=== PATIENT | female | born 1950 ===

== ENCOUNTER 2023-03-21 15:59 | Inpatient (IN) | payer MEDICARE ==
[~2023-03-21] VITALS: Ht 147.3 cm; Wt 106.0 kg
[2023-03-21 17:52] VITALS: BP 123/98
[2023-03-21 18:28] LABS: PCO2 Arterial 23.1 mmHg (35-45); pH Blood Arterial 7.43 (7.35-7.45)
[2023-03-21 18:57] LABS: Hematocrit 38.2 % (33.0-51.0); Hemoglobin 13.6 g/dL (11.5-16.0); Mean Corpuscular HGB 30.6 pg (26.0-34.0); Mean Corpuscular HGB Conc 35.6 g/dL (31.5-36.5); Mean Corpuscular Volume 86 fL (80-100); Mean Platelet Volume 12.5 fL (9.1-12.4); Platelet Count 201 K/mm3 (150-400); RDW Coefficient Variation 14.2 % (11.7-14.2); Red Blood Cell Count 4.45 M/mm3 (3.80-5.20); White Blood Cell Count 30.61 K/mm3 (4.00-11.30)
[2023-03-21 19:19] LABS: Albumin, Blood 2.2 g/dL (3.4-5.0); Albumin/Globulin Ratio 0.4 (0.8-1.8); Bilirubin, Total 0.7 mg/dL (0.1-1.0); Bun/Creatinine Ratio 43.8 (12.0-20.0); Calcium, Blood 8.8 mg/dL (8.5-10.1); Creatinine, Blood 0.62 mg/dL (0.40-1.00); Globulin, Blood 4.9 g/dL (2.2-4.0); Total Protein, Blood 7.1 g/dL (6.4-8.2)
--- NOTE | 2023-03-21 19:37 | NUR ---
ADMIT NOTE PT ARRIVED TO UNIT AT APPROX 1740 VIA EMS, DIRECT ADMIT FROM [facility]. PT CONFUSED, ALERT TO SELF ONLY, DOES NOT FOLLOW MOST COMMANDS. SATS >90% ON ROOM AIR. PT NOTABLE TACHYPENIC, SHALLOW RESPIRATIONS. TELEMETRY SHOW PACED, HR 120'S, TOUCHING 140'S OCCASSIONALLY. CAP REFILL DELAYED, SKIN MOTTLED ON ALL EXTREMITIES. ZALDIVAR CATHER IN PLACE AT ARRIVAL, PLACED IN [facility]. DRAINING CLEAR YELLOW URINE. NO BM. LOCALIZES PAIN ON RLQ UPON PALPATION. MULTIPLE SKIN RASHES AND SCABS, SEE PICTURES IN CHART. MD NAIR IN ROOM TO ASSESS PT. MD NAIR W/ ORDERS FOR STAT ECHO AND CARDIOLOGY CONSULT. ECHO CURRENTLY IN RM. BED ALARM ON. CALL LIGHT IN REACH.
[2023-03-21 20:55] LABS: Base Excess Venous -7.7 mmol/L; Bicarbonate Venous 19.1 mmol/L (24.0-30.0); PCO2 Venous 27.5 mmHg (38-42)
[2023-03-21 20:59] VITALS: BP 167/122
[2023-03-21 21:23] LABS: Bun/Creatinine Ratio 40.1 (12.0-20.0); Calcium, Blood 8.8 mg/dL (8.5-10.1); Creatinine, Blood 0.65 mg/dL (0.40-1.00); Potassium, Blood 2.8 mmol/L (3.5-5.5)
[2023-03-21] MEDS ORDERED: ROSUVASTATIN CA20 MG PO (21:26)
[2023-03-21] MEDS ORDERED: IRBESARTAN300 M3 PO (21:26)
[2023-03-21 21:34] VITALS: BP 159/85
[2023-03-21 22:04] LABS: Source, Urine Clean Catch
[2023-03-21 22:41] LABS: Appearance, Urine Clear (Clear); Bilirubin, Urine Neg (Neg); Blood, Urine 4+ (Neg); Color, Urine Yellow (P-Yellow); Glucose Qualitative, Urine 4+ (Neg); Ketones, Urine 4+ (Neg); Leukocyte Esterase, Urine Neg (Neg); Nitrite, Urine Neg (Neg); Protein, Urine 3+ (Neg); Urobilinogen, Urine NORM (Normal)
[2023-03-21 23:01] VITALS: BP 162/86
[2023-03-21 23:09] LABS: U Amphetamine Screen Not Detected; U Barbituate Screen Not Detected; U Benzodiazapine Screen Not Detected; U Buprenorphine Screen Not Detected; U Cannabinoids Screen DETECTED; U Cocaine Screen Not Detected; U Methadone Screen Not Detected; U Methamphetamine Screen Not Detected; U Opiates Screen Not Detected; U Oxycodone Screen Not Detected; U Phencyclidine Screen Not Detected; U Propoxyphene Screen Not Detected
[2023-03-21 23:22] LABS: Bacteria Few /hpf; Granular Casts 0-2 /lpf (0); Squamous Epithelial Cells Few /hpf (Few); White Blood Cells, Urine 0-2 /hpf (0-5)
[2023-03-22] VITALS (64 sets, daily range): BP systolic 94–178; BP diastolic 60–92
[2023-03-22 01:18] LABS: Bun/Creatinine Ratio 38.8 (12.0-20.0); Calcium, Blood 8.5 mg/dL (8.5-10.1); Creatinine, Blood 0.64 mg/dL (0.40-1.00); Potassium, Blood 2.8 mmol/L (3.5-5.5)
[2023-03-22 02:34] LABS: Magnesium, Blood 2.2 mg/dL (1.6-2.4)
[2023-03-22 04:14] LABS: Hematocrit 35.1 % (33.0-51.0); Hemoglobin 12.4 g/dL (11.5-16.0); Mean Corpuscular HGB 30.3 pg (26.0-34.0); Mean Corpuscular HGB Conc 35.3 g/dL (31.5-36.5); Mean Corpuscular Volume 86 fL (80-100); Mean Platelet Volume 12.3 fL (9.1-12.4); Platelet Count 191 K/mm3 (150-400); RDW Coefficient Variation 14.1 % (11.7-14.2); RDW Standard Deviation 44.2 fL (35.1-46.3); Red Blood Cell Count 4.09 M/mm3 (3.80-5.20)
[2023-03-22 04:26] LABS: Albumin, Blood 1.9 g/dL (3.4-5.0); Albumin/Globulin Ratio 0.4 (0.8-1.8); Bilirubin, Total 0.8 mg/dL (0.1-1.0); Bun/Creatinine Ratio 39.5 (12.0-20.0); Calcium, Blood 8.5 mg/dL (8.5-10.1); Creatinine, Blood 0.63 mg/dL (0.40-1.00); Globulin, Blood 4.4 g/dL (2.2-4.0); Magnesium, Blood 2.3 mg/dL (1.6-2.4); Potassium, Blood 2.9 mmol/L (3.5-5.5); Total Protein, Blood 6.3 g/dL (6.4-8.2)
[2023-03-22 04:50] LABS: PCO2 Arterial 26.2 mmHg (35-45); PO2 Arterial 60.6 mmHg (80-100); pH Blood Arterial 7.46 (7.35-7.45)
--- NOTE | 2023-03-22 06:52 | NUR ---
SHIFT SUMMARY PT A&O TO SELF, DOES NOT CALL AND DOES NOT COMMUNICATES NEEDS. PT STATES THAT SHE IS STILL AT THE [facility] PT NOT ABLE TO FOLLOW COMMANDS, CONSTANTLY PULLING AT LINES AND TUBES REQUIRING HER TO BE IN BILAT SOFT WRIST RESTRAINTS. BP ELEVATED, MANAGED PER EMAR. PACED 120's, DENIES CP/PRESSURE. SpO2> 92% RA. RR 40-60's AND INCREASED WORK OF BREATHING, PT REPORTS THAT SHE FEELS TIRED. NOTIFED PHYSICIAN OF RR AND WORK OF BREATHING, HR, AND BP; PHYSICIAN TO BEDSIDE, ORDERS PLACED. PT's RR AND WORK OF BREATHING REMAIN VERY ELEVATED AND ABG IS SLIGHTLY WORSE, DISCUSSED CONCERN WITH RT. PHYSICIAN NOTIFIED AND THIS RN EXPRESSED CONCERN OF PT's RR AND WORK OF BREATHING, ORDERS PLACED FOR PT TO BE PLACED ON CPAP, RESTRAINTS REMOVED, AND AN ADDITIONAL DOSE OF PAIN MEDICATION RATHER THAN ATIVAN TO HELP WOTH CPAP COMPLIANCE. PT's RR REMAINS 50's EVEN ON CPAP AND PT IS PULLING ON LINES, TUBING, AND MASK. ZALDIVAR CATH IN PLACE, PATENT, DRAINING TO GRAVITY. PT REMAINED BEDREST AND NPO. GRANDSON AT BEDSIDE. NO OTHER EVENTS, WILL REPORT TO ONCOMING RN.
[2023-03-22 08:12] LABS: Adenovirus Not Detected (NOT DETECT); Bordetella pertussis Not Detected (NOT DETECT); Chlamydophila pneumoniae Not Detected (NOT DETECT); Coronavirus 229E Not Detected (NOT DETECT); Coronavirus HKU1 Not Detected (NOT DETECT); Coronavirus NL63 Not Detected (NOT DETECT); Coronavirus OC43 Not Detected (NOT DETECT); Human Metapneumovirus Not Detected (NOT DETECT); Human Rhinovirus/Enterovirus Not Detected (NOT DETECT); Influenza A/2009-H1 Not Detected (NOT DETECT); Influenza A/H1 Not Detected (NOT DETECT); Influenza A/H3 Not Detected (NOT DETECT); Influenza B Not Detected (NOT DETECT); Mycoplasma pneumoniae Not Detected (NOT DETECT); Parainfluenza Virus 1 Not Detected (NOT DETECT); Parainfluenza Virus 2 Not Detected (NOT DETECT); Parainfluenza Virus 3 Not Detected (NOT DETECT); Parainfluenza Virus 4 Not Detected (NOT DETECT); Respiratory Syncytial Virus Not Detected (NOT DETECT); SARS-Cov-2 (COVID-19), BioFire Not Detected (NOT DETECT)
--- NOTE | 2023-03-22 08:58 | NUR ---
TRANSFER ICU PT OPENS EYES TO VERBAL STIMULATION. PT SPEAKS, BUT DIFFICULT TO UNDERSTAND W/ CPAP ON. MONITOR SHOWING PACED RHYTHM, HR 110s-120s. BP ELEVATED. RR 40s-60s. SPO2 > 92% ON CPAP: 10, FIO2 30% W/ PT CONTINUOUSLY TRYING TO REMOVE MASK. CALL TO MD NAIR W/ ORDERS TO TAKE PT TO CT & TRANSFER TO ICU. PT GRANDSON AT BEDSIDE UPDATED. REPORT GIVEN TO ACCEPTING MANAGED CARE NURSE. PT TAKEN TO IMAGING BY BED, THEN TRANSFERRED TO ICU-12.
--- NOTE | 2023-03-22 09:00 | NUR ---
INITIAL ASSESSMENT PATIENT RESPONDS TO VERBAL STIMULI. PATIENT CONFUSED. PATIENT ORIENTED TO SELF ONLY. PATIENT ABLE TO FOLLOW SOME SIMPLE COMMANDS. PATIENT WEAK BUT ABLE TO MOVE ALL EXTREMITIES. PATIENT YOCHA DEHE. SPEECH MUMBLED. NO SIGNS OF PAIN NOTED. PATIENT AFEBRILE. PATIENT ON CPAP OF 10 AND 30% FIO2. LUNGS CLEAR IN RUL AND HAS EXPIRATORY COARSENESS TO ALL OTHER LOBES. PATIENT RR 40S TO 60S. PATIENT 100% V.PACED. HR IN THE 1-TEENS. SBP IN THE 160S. EDEMA NOTED TO EXTREMITIES. ABD MODERATELY DISTENDED, HYPOACTIVE BOWEL SOUNDS NOTED. DATE OF LAST BM UNKNOWN. PATIENT NPO. ZALDIVAR DRAINING YELLOW COLORED URINE. MOTTLED AREA TO BACK; FAMILY STATES PATIENT HAS BURN FROM USING HEATING PAD AT HOME. LEGS MOTTLED. SCATTERED SCABS NOTED T/O. PANNUS, GROIN FOLDS, UNDERNEATH BREASTS, AXILLI, INTERGLUTEAL CLEFT REDDENED WITH RASH. BED LOW, CALL LIGHT AT BEDSIDE. FAMILY AT BEDSIDE.
[2023-03-22 11:04] LABS: BAND PERCENT MAN 7 % (0-8); BASOPHILS PERCENT MAN 0 % (0-2); EOSINOPHILS PERCENT MAN 0 % (0-6); LYMPHOCYTES ABSOLUTE MAN 1.08 K/mm3 (0.84-5.20); LYMPHOCYTES PERCENT MAN 4 % (21-46); MONOCYTES ABSOLUTE MAN 1.89 K/mm3 (0.16-1.47); MONOCYTES PERCENT MAN 7 % (4-13); NEUTROPHILS ABSOLUTE MAN 24.03 K/mm3 (1.96-9.15); SEG NEUTROPHILS PERCENT MAN 82 % (41-73); TOTAL CELLS COUNTED 100
--- NOTE | 2023-03-22 12:30 | NUR ---
PATIENT AFEBRILE. HR IN THE 1-TEENS. SBP IN THE 140S. GRANDSON AT BEDSIDE.
[2023-03-22 13:41] LABS: PCO2 Arterial 31.9 mmHg (35-45); PO2 Arterial 93.6 mmHg (80-100); pH Blood Arterial 7.48 (7.35-7.45)
[2023-03-22 15:54] LABS: BASOPHILS ABSOLUTE AUTO 0.07 K/mm3 (0.00-0.23); BASOPHILS PERCENT AUTO 0 % (0-2); EOSINOPHILS ABSOLUTE AUTO 0.03 K/mm3 (0.00-0.68); EOSINOPHILS PERCENT AUTO 0 % (0-6); Hematocrit 35.7 % (33.0-51.0); Hemoglobin 12.8 g/dL (11.5-16.0); IMMATURE GRAN ABSOLUTE AUTO 0.33 K/mm3 (0.00-0.10); IMMATURE GRAN PERCENT AUTO 1 % (0-1); LYMPHOCYTES ABSOLUTE AUTO 0.79 K/mm3 (0.84-5.20); LYMPHOCYTES PERCENT AUTO 3 % (21-46); MONOCYTES ABSOLUTE AUTO 1.78 K/mm3 (0.16-1.47); MONOCYTES PERCENT AUTO 6 % (4-13); Mean Corpuscular HGB 30.5 pg (26.0-34.0); Mean Corpuscular HGB Conc 35.9 g/dL (31.5-36.5); Mean Corpuscular Volume 85 fL (80-100); Mean Platelet Volume 12.4 fL (9.1-12.4); NEUTROPHILS PERCENT AUTO 90 % (41-73); Platelet Count 210 K/mm3 (150-400); RDW Coefficient Variation 13.9 % (11.7-14.2); RDW Standard Deviation 43.5 fL (35.1-46.3); Red Blood Cell Count 4.19 M/mm3 (3.80-5.20)
[2023-03-22 16:11] LABS: Bun/Creatinine Ratio 31.5 (12.0-20.0); Calcium, Blood 8.8 mg/dL (8.5-10.1); Creatinine, Blood 0.83 mg/dL (0.40-1.00); Potassium, Blood 2.7 mmol/L (3.5-5.5)
--- NOTE | 2023-03-22 19:20 | NUR ---
SHIFT SUMMARY PATIENT REMAINED CONFUSED AND ON CPAP THIS SHIFT. PATIENT ONLY ORIENTED TO SELF AND SOMETIMES FOLLOWED SIMPLE COMMANDS. PATIENT WEAK BUT REMAINED ABLE TO MOVE ALL EXTREMITIES. PATIENT REMAINED AFEBRILE. PATIENT GIVEN PRN FENTANYL FOR HIGH RR AND HIGH HR, WELL PATIENT BEING RESTLESS IN BED. CPAP REMAINED AT 10 AND 30% FIO2. RR 30S TO 60S. PATIENT REMAINED V.PACED WITH HR 1-TEENS TO 120S. SBP 90S TO 160S. PRN IV METOPROLOL AND HYDRALAZINE AVAILABLE FOR HIGH HR OR BP. NO BM THIS SHIFT. SUPPOSITORY GIVEN THIS SHIFT. PATIENT REMAINED NPO. ZALDIVAR DRAINED 1975 MLS OF DARK YELLOW COLORED URINE. PICS OF WOUNDS/ SKIN PLACED IN CHART. NYSTATIN CREAM APPLIED FOR RASHES IN SKIN FOLDS. SODIIUM BICARB IN D5 INFUSING AT 50 MLS/ HOUR. PATIENT RECEIVED 80 MEQ KCL THIS SHIFT FOR LOW POTASSIUM LEVELS. PATIENT HAD CTA OF CHEST AND LUMBAR/ THORACIC AREAS THIS SHIFT. BLOOD SUGARS REMAINED IN 270S; COVERAGE ADMINISTERED AT EACH CHECK. BED LOW, CALL LIGHT IN REACH. GRANDSON REMAINS IN ROOM. REPORT GIVEN TO COPY CHIEF ASSUMING NURSE.
[2023-03-22 23:20] LABS: Source, Urine Foley catheter
[2023-03-22 23:30] LABS: Appearance, Urine Hazy (Clear); Bilirubin, Urine Neg (Neg); Blood, Urine 4+ (Neg); Color, Urine Yellow (P-Yellow); Glucose Qualitative, Urine 4+ (Neg); Ketones, Urine 4+ (Neg); Leukocyte Esterase, Urine 1+ (Neg); Nitrite, Urine Neg (Neg); Protein, Urine 3+ (Neg); Specific Gravity, Urine 1.015 (1.003-1.022); Urobilinogen, Urine 1+ (Normal)
[2023-03-23] VITALS (86 sets, daily range): BP systolic 101–183; BP diastolic 62–162
[2023-03-23 00:02] LABS: Bacteria Mod /hpf; Granular Casts 0-2 /lpf (0); Squamous Epithelial Cells Few /hpf (Few)
[2023-03-23 03:48] LABS: BASOPHILS ABSOLUTE AUTO 0.06 K/mm3 (0.00-0.23); BASOPHILS PERCENT AUTO 0 % (0-2); EOSINOPHILS PERCENT AUTO 0 % (0-6); Hematocrit 34.3 % (33.0-51.0); Hemoglobin 11.9 g/dL (11.5-16.0); IMMATURE GRAN ABSOLUTE AUTO 0.31 K/mm3 (0.00-0.10); IMMATURE GRAN PERCENT AUTO 1 % (0-1); LYMPHOCYTES ABSOLUTE AUTO 0.83 K/mm3 (0.84-5.20); LYMPHOCYTES PERCENT AUTO 4 % (21-46); MONOCYTES ABSOLUTE AUTO 1.73 K/mm3 (0.16-1.47); MONOCYTES PERCENT AUTO 8 % (4-13); Mean Corpuscular HGB 29.9 pg (26.0-34.0); Mean Corpuscular HGB Conc 34.7 g/dL (31.5-36.5); Mean Corpuscular Volume 86 fL (80-100); Mean Platelet Volume 12.3 fL (9.1-12.4); NEUTROPHILS ABSOLUTE AUTO 20.06 K/mm3 (1.96-9.15); NEUTROPHILS PERCENT AUTO 87 % (41-73); Platelet Count 217 K/mm3 (150-400); RDW Coefficient Variation 13.9 % (11.7-14.2); RDW Standard Deviation 43.7 fL (35.1-46.3); Red Blood Cell Count 3.98 M/mm3 (3.80-5.20); White Blood Cell Count 22.99 K/mm3 (4.00-11.30)
[2023-03-23 04:22] LABS: Alanine Aminotransfer (ALT/SGP 27 U/L (12-78); Albumin, Blood 1.7 g/dL (3.4-5.0); Albumin/Globulin Ratio 0.4 (0.8-1.8); Alk Phos 174 U/L (50-136); Anion Gap 8 mmol/L (6-16); Aspartate Aminotrans (AST/SGOT 36 U/L (12-37); Bilirubin, Total 0.8 mg/dL (0.1-1.0); Blood Urea Nitrogen 29 mg/dL (8-24); CHOL/HDL RATIO 6.8; CO2, Blood 28 mmol/L (21-32); Calcium, Blood 8.5 mg/dL (8.5-10.1); Chloride, Blood 113 mmol/L (98-108); Cholesterol 61 mg/dL (50-200); Creatinine, Blood 0.81 mg/dL (0.40-1.00); Globulin, Blood 4.5 g/dL (2.2-4.0); Glomerular Filtration Rate 78 (60-); Glucose, Blood 292 mg/dL (70-99); HDL Cholesterol 9 mg/dL (>39); LDL/HDL RATIO 1.6; Low Density Lipoprotein Chol 15 mg/dL (0-110); Magnesium, Blood 2.7 mg/dL (1.6-2.4); Phosphorus, Blood 1.3 mg/dL (2.5-4.9); Potassium, Blood 2.9 mmol/L (3.5-5.5); Sodium, Blood 149 mmol/L (136-145); Total Protein, Blood 6.2 g/dL (6.4-8.2); Triglycerides 187 mg/dL (30-160); Very Low Density Lipoprot Chol 37 mg/dL (6-32)
--- NOTE | 2023-03-23 06:28 | NUR ---
SHIFT SUMMARY: NO ACUTE CHANGES OVERNIGHT. PT REMAINS AMS, AT TIMES WILL RESPOND TO NAME BEING CALLED BY OPENNING EYES AND IS RESPONSIVE TO PAIN STIMULI AT THIS TIME. PT ON CPAP WITH SETTINGS AT 10, FIO2 40%; FIO2 TITRATED UP THIS SHIFT DUE TO PT SPO2 DROPPING DOWN TO 88 AND SUSTAINING. PT LUNG SOUNDS ARE COARSE THROUGHOUT AND DRY, NON-PRODUCTIVE COUGHT NOTED THIS MORNING. ORAL CARE COMPLETE BUT PT VERY RELUCTANT TO COOPERATE; PT CONTINUOUSLY SHAKING HEAD AND PULLING AT THIS RN'S HANDS WHEN ATTEMPTING ORAL CARE, THE GRANDSON AT BEDSIDE HELPED HOLD PT'S HANDS A FEW TIMES. PT REMAINS PACED ON MONITOR WITH HR 110'S AND SBP 150-160'S; PT RECIEVED ONE DOSE OF HYDRALIZINE PER EMAR. PT REMAINS NPO FOR ASPIRATION RISK; ABD ROUND AND TENDER IN R QUADRANTS, NO BOWEL MOVEMENT THIS SHIFT. ZALDIVAR REPLACED THIS SHIFT PER PROTOCOL AND NEW UA SENT TO LAB; URINE YELLOW, SLIGHTLY CLOUDY. SKIN REMAINS UNCHANGED; VARIOUS BRUISES, EXCORIATION/FUNGAL INFECTION IN ABD FOLDS AND RASH/BURN ON BACK. PT WAS VERY RESTLESS THROUGHOUT THE NIGHT AND AGGITATED WITH ANY KIND OF PT CARE; PT RECIEVED ATIVAN AND FENTANYL WHICH SEEMED TO HELP WITH RESTLESSNESS. BED LOWERED, CALL LIGHT IN REACH, WILL REPORT TO ONCOMING RN.
--- NOTE | 2023-03-23 08:00 | NUR ---
INITIAL ASSESSMENT PATIENT RESLTESS AND FIDGETY. PATIENT IS NOT REPONSIVE TO VERBAL STIMULI AND DOES NOT FOLLOW COMMANDS. PATIENT PULLS AWAY FROM NOXIOUS STIMULI AND ANY TYPE OF NURSING CARE. PATIENT [place] PER GRANDSON. PATIENT HAD COMPLAINTS OF BACK PAIN BEFORE BEING ADMITTED. PATIENT HAS TEMP OF 99.4 DEGREES FAHRENHEIT THIS AM. PATIENT ON CPAP OF 10 AND 40% FIO2. RHONCHI NOTED T/O LUNG LOBES. PATIENT HAS OCCASIONAL DRY COUGH. PATIENT V.PACED. HR IN THE 1-TEENS. SBP IN THE 160S. EDEMA NOTED TO EXTREMITIES. ABD MODERATELY DISTENDED, SOFT, APPEARS TENDER TO PALPATION, HYPOACTIVE BOWEL SOUNDS NOTED. SUPPOSITORY GIVEN DRAmerica WOULD LIKE GIVEN UNTIL PATIENT HAS BOWEL MOVEMENT. ZALDIVAR DRAINING DARK YELLOW COLORED URINE. SCATTERED BRUISES AND SCABS NOTED. OPENED BLISTERS NOTED TO R UPPER BUTTOCKS. SKIN FOLDS REMAIN WITH RASHES. NYSTATIN CREAM BEING APPLIED ORDERED. PATIENT ON IV DIFLUCAN. PATIENT ALSO ON ZOSYN AND VANCO. SODIUM BICARB IN D5 INFUSING AT 50 MLS/ HOUR. PATIENT RECEIVING PHOS AND POTASSIUM REPLACEMENTS THIS AM. BED LOW, CALL LIGHT IN REACH. GRANDSON AT BEDSIDE.
[2023-03-23 08:25] LABS: Vancomycin, Trough 17.9 ug/mL (5.0-10.0)
[2023-03-23 11:01] LABS: Base Excess Venous 9.4 mmol/L; Bicarbonate Venous 32.2 mmol/L (24.0-30.0); PCO2 Venous 42.2 mmHg (38-42)
--- NOTE | 2023-03-23 13:00 | NUR ---
PATIENT AFEBRILE. HR IN THE LOW 100S. SBP 140S TO 150S. BLOOD SUGAR 323; COVERAGE GIVEN. PATIENT ON BIPAP 21/02, RATE OF 14, 40% FIO2. NO OTHER ACUTE CHANGES TO NOTE ON AT THIS TIME. GRANDSON AT BEDSIDE.
[2023-03-23 13:58] LABS: BASOPHILS ABSOLUTE AUTO 0.05 K/mm3 (0.00-0.23); BASOPHILS PERCENT AUTO 0 % (0-2); EOSINOPHILS ABSOLUTE AUTO 0.01 K/mm3 (0.00-0.68); EOSINOPHILS PERCENT AUTO 0 % (0-6); Hematocrit 32.4 % (33.0-51.0); Hemoglobin 11.5 g/dL (11.5-16.0); IMMATURE GRAN ABSOLUTE AUTO 0.29 K/mm3 (0.00-0.10); IMMATURE GRAN PERCENT AUTO 1 % (0-1); LYMPHOCYTES ABSOLUTE AUTO 1.14 K/mm3 (0.84-5.20); LYMPHOCYTES PERCENT AUTO 6 % (21-46); MONOCYTES ABSOLUTE AUTO 1.25 K/mm3 (0.16-1.47); MONOCYTES PERCENT AUTO 6 % (4-13); Mean Corpuscular HGB 30.5 pg (26.0-34.0); Mean Corpuscular HGB Conc 35.5 g/dL (31.5-36.5); Mean Corpuscular Volume 86 fL (80-100); Mean Platelet Volume 12.4 fL (9.1-12.4); NEUTROPHILS ABSOLUTE AUTO 17.69 K/mm3 (1.96-9.15); NEUTROPHILS PERCENT AUTO 87 % (41-73); Platelet Count 218 K/mm3 (150-400); RDW Coefficient Variation 14.3 % (11.7-14.2); RDW Standard Deviation 45.1 fL (35.1-46.3); Red Blood Cell Count 3.77 M/mm3 (3.80-5.20); White Blood Cell Count 20.43 K/mm3 (4.00-11.30)
[2023-03-23 14:26] LABS: Albumin, Blood 1.8 g/dL (3.4-5.0); Albumin/Globulin Ratio 0.4 (0.8-1.8); Bilirubin, Total 0.9 mg/dL (0.1-1.0); Calcium, Blood 8.6 mg/dL (8.5-10.1); Creatinine, Blood 0.8 mg/dL (0.40-1.00); Globulin, Blood 4.4 g/dL (2.2-4.0); Magnesium, Blood 2.8 mg/dL (1.6-2.4); Potassium, Blood 3.2 mmol/L (3.5-5.5); Total Protein, Blood 6.2 g/dL (6.4-8.2)
[2023-03-23 15:01] LABS: Phosphorus, Blood 2.2 mg/dL (2.5-4.9); Potassium, Blood 3.2 mmol/L (3.5-5.5)
--- NOTE | 2023-03-23 16:05 | NUR ---
PATIENT AFEBRILE. HR IN THE 1-TEENS. SBP 140S TO 160S. RR IN THE 40S. PATIENT REMAINS ON SAME CPAP SETTINGS. BED LOW, CALL LIGHT IN REACH. GRANDSON AT BEDSIDE.
--- NOTE | 2023-03-23 19:03 | NUR ---
SHIFT SUMMARY PATIENT REMAINS RESPONDING TO NURSING CARE WITH SWATTING AT NURSES AND GRIMACING. PATIENT NOT FOLLOWING ANY COMMANDS AT THIS TIME. PATIENT NOT OPENING EYES. PATIENT NOT ANSWERING ANY QUESTIONS AND ONLY MAKING SMALL SOUNDS AT TIMES. PATIENT HAS REMAINED FIDGETY AND RESTLESS. PATIENT BEING GIVEN PRN FENTANYL AND TYLENOL FOR SIGNS OF DISCOMFORT. PATIENT GIVEN PRN ATIVAN OT AT END OF SHIFT PATIENT CONTINUES TO TRY AND PULL MONITORING EQUIPMENT, IVS AND BIPAP OFF EVEN WITH GRANDSON TRYING TO REDIRECT AT BEDSIDE. PATIENT HAD SLIGHT TEMP OF 99.4 DEGREES FAHRENHEIT THIS AM BUT HAS BEEN AFEBRILE SINCE. PATIENT CHANGED FROM CPAP TO BIPAP /, RATE OF 14 AND 40% FIO2 BECAUSE OF PATIENT'S PULLING LOW TVS AROUND 150S TO 250S. PATIENT REMAINED V.PACED, HR LOW 100S TO 130S. SBP LOW 100S TO 170S. NO BM THIS SHIFT. PATIENT GIVEN SUPPOSITORY THIS AM. PATIENT REMAINED NPO. ZALDIVAR DRAINED GOOD AMOUNT OF URINE THIS SHIFT. NO CHANGES TO SKIN NOTED. PATIENT TURNED Q2H AND RECEIVED BED BATH THIS SHIFT. FLUIDS CHANGED TO D5 1/2 NS AT 100 MLS/ HOUR. PATIENT HAD 20 MEQ OF KCL AND 60 MM KPHOS THIS SHIFT. NEW BLOOD CULTURES OBTAINED THIS SHIFT. BLOOD SUGARS IN MID 300S THIS SHIFT. PATIENT CHANGED TO REGULAR INSULIN- HSS AND NPH ADDED BID. PATIENT'S GRANDSON HAS REMAINED AT BEDSIDE ALL DAY EXCEPT FOR SMALL BREAKS. BED LOW, CALL LIGHT IN REACH. REPORT HAS BEEN GIVEN TO ASSUMING BLOOMING MILL SUPERVISOR NURSE.
[2023-03-23 22:48] LABS: Phosphorus, Blood 2.6 mg/dL (2.5-4.9); Potassium, Blood 3.3 mmol/L (3.5-5.5)
[2023-03-24] VITALS (60 sets, daily range): BP systolic 85–154; BP diastolic 54–114
[2023-03-24 04:32] LABS: BASOPHILS ABSOLUTE AUTO 0.02 K/mm3 (0.00-0.23); BASOPHILS PERCENT AUTO 0 % (0-2); EOSINOPHILS ABSOLUTE AUTO 0.01 K/mm3 (0.00-0.68); EOSINOPHILS PERCENT AUTO 0 % (0-6); Hematocrit 29.4 % (33.0-51.0); Hemoglobin 10.3 g/dL (11.5-16.0); IMMATURE GRAN ABSOLUTE AUTO 0.15 K/mm3 (0.00-0.10); IMMATURE GRAN PERCENT AUTO 1 % (0-1); LYMPHOCYTES ABSOLUTE AUTO 0.97 K/mm3 (0.84-5.20); LYMPHOCYTES PERCENT AUTO 6 % (21-46); MONOCYTES ABSOLUTE AUTO 0.93 K/mm3 (0.16-1.47); MONOCYTES PERCENT AUTO 6 % (4-13); Mean Corpuscular HGB 30.3 pg (26.0-34.0); Mean Corpuscular Volume 87 fL (80-100); Mean Platelet Volume 12.3 fL (9.1-12.4); NEUTROPHILS ABSOLUTE AUTO 13.81 K/mm3 (1.96-9.15); NEUTROPHILS PERCENT AUTO 87 % (41-73); Platelet Count 182 K/mm3 (150-400); RDW Coefficient Variation 14.6 % (11.7-14.2); RDW Standard Deviation 46.1 fL (35.1-46.3); White Blood Cell Count 15.89 K/mm3 (4.00-11.30)
[2023-03-24 04:53] LABS: Albumin, Blood 1.5 g/dL (3.4-5.0); Albumin/Globulin Ratio 0.4 (0.8-1.8); Bilirubin, Total 0.7 mg/dL (0.1-1.0); Bun/Creatinine Ratio 32.8 (12.0-20.0); Calcium, Blood 7.8 mg/dL (8.5-10.1); Creatinine, Blood 0.79 mg/dL (0.40-1.00); Globulin, Blood 4.1 g/dL (2.2-4.0); Magnesium, Blood 2.5 mg/dL (1.6-2.4); Phosphorus, Blood 1.6 mg/dL (2.5-4.9); Potassium, Blood 3.7 mmol/L (3.5-5.5); Total Protein, Blood 5.6 g/dL (6.4-8.2)
--- NOTE | 2023-03-24 07:16 | NUR ---
SHIFT SUMMARY: NO ACUTE CHANGES OVERNIGHT; VSS THROUGHOUT THE SHIFT. PT REMAINS AMS, NOT RESPONDING TO VERBAL STIMULI BUT BECOMES VERY AGGITATED/RESTLESS WITH NOXIOUS STIMULI. PT REMAINS ON BIPAP WITH SETTINGS 14/8, RATE-14, AND FIO2 40%; LUNG SOUNDS ARE COARSE THROUGHOUT WITH THE LEFT SIDE MORE DIMINISHED COMPARED TO THE RIGHT SIDE. PT PACED ON MONITOR WITH HR 80-110'S, SBP 120-140'S; PT CURRENTLY ON PRECEDEX GTT @ 0.2 MCG/KG/HR. ABD OBESE, ROUND AND TENDER IN THE RIGTH QUADRANTS; PT DID NOT HAVE A BOWEL MOVEMENT THIS SHIFT. PT HAS ZALDIVAR IN PLACE THAT IS DRAINING TO GRAVITY; URINE DARK YELLOW/BERE, URINE OUTPUT 650. PT HAS SCATTERED BRUISING, EXCORIATION/FUNGAL INFECTION IN FOLDS AND TEAR/BURN ON BACKSIDE; WOUND CARE PER ORDERS. PT TOLERATED ORAL CARE THIS SHIFT AND Q2HR REPOSITIONING WITH LIFT. PT'S GRANDSON AT BEDSIDE THROUGHOUT THE NIGHT HELPING THIS RN WITH PT CARE. D5 1/2 NS @ 100 MLS/HR. WILL REPORT TO ONCOMING RN.
--- NOTE | 2023-03-24 09:42 | NUR ---
Intubation: Dr. Venegas and 2 RTs at bedside prepping for intubation. 0945: 50 mg propofol IV push, pt being ventilated with BiPAP. 0946: 8.0 ET tube placed by Dr. Venegas, EtCO2 positive, bilateral breath sounds, 23 cm at teeth ET depth. 0947: 50 mg propofol IV push due to pt biting on ET tube. 0949: OG tube placed.
[2023-03-24 10:45] LABS: PCO2 Arterial 38.5 mmHg (35-45); pH Blood Arterial 7.51 (7.35-7.45)
[2023-03-24 13:44] LABS: BASOPHILS ABSOLUTE AUTO 0.01 K/mm3 (0.00-0.23); BASOPHILS PERCENT AUTO 0 % (0-2); EOSINOPHILS ABSOLUTE AUTO 0.02 K/mm3 (0.00-0.68); EOSINOPHILS PERCENT AUTO 0 % (0-6); Hematocrit 28.7 % (33.0-51.0); Hemoglobin 9.8 g/dL (11.5-16.0); IMMATURE GRAN ABSOLUTE AUTO 0.16 K/mm3 (0.00-0.10); IMMATURE GRAN PERCENT AUTO 1 % (0-1); LYMPHOCYTES ABSOLUTE AUTO 1.01 K/mm3 (0.84-5.20); LYMPHOCYTES PERCENT AUTO 8 % (21-46); MONOCYTES ABSOLUTE AUTO 0.63 K/mm3 (0.16-1.47); MONOCYTES PERCENT AUTO 5 % (4-13); Mean Corpuscular HGB 30.2 pg (26.0-34.0); Mean Corpuscular HGB Conc 34.1 g/dL (31.5-36.5); Mean Corpuscular Volume 88 fL (80-100); Mean Platelet Volume 12.7 fL (9.1-12.4); NEUTROPHILS PERCENT AUTO 86 % (41-73); NRBC ABSOLUTE 0.02 K/mm3 (0.00-0.02); NRBC Auto 0.2 /100 WBC (0.0-0.2); Platelet Count 164 K/mm3 (150-400); RDW Coefficient Variation 14.9 % (11.7-14.2); RDW Standard Deviation 48.5 fL (35.1-46.3); Red Blood Cell Count 3.25 M/mm3 (3.80-5.20); White Blood Cell Count 13.33 K/mm3 (4.00-11.30)
[2023-03-24 13:58] LABS: Bun/Creatinine Ratio 33.7 (12.0-20.0); Calcium, Blood 7.9 mg/dL (8.5-10.1); Creatinine, Blood 0.89 mg/dL (0.40-1.00); Phosphorus, Blood 3.5 mg/dL (2.5-4.9)
--- NOTE | 2023-03-24 18:10 | NUR ---
SUMMARY PT INTBUATED AND SEDATED WITH PROPOFOL AND PRECEDEX. PT WAS INTUBATED THIS AM FOR [place]. HER WOB AND RESP RATE WERE INCREASED WELL. PT GRIMACES TO PAIN. OG PLACED. TUBE FEEDING STARTED AND PT TOLERATING WELL. 200ML H20 FLUSHES DUE TO INCREASED SODIUM LEVEL. GRANDSON REMAINS AT BEDSIDE AND UPDATED THROUGHOUT THE DAY. NO SIGN OF DISTRESS.
--- NOTE | 2023-03-24 19:00 | NUR ---
ASSUMED CARE OF PT AT 1900 PT IS SEDATED AND INTUBATED AT THIS TIME. GRANDSON AT BEDSIDE DURING BEDSIDE REPORT. VITALS WNL ( SEE VITALS DOCUMENTATION). PROP @ 25 MCG PRECEDEX @ 0.2 MCG ZALDIVAR CATH DRAINING DARK YELLOW URINE. VENT SETTINGS 18/400/5/40% SEE FULL ASSESSMENT FOR FURTHER INFORMATION.
--- NOTE | 2023-03-24 19:38 | NUR ---
RT IN ROOM AT THIS TIME.
[2023-03-24 20:36] LABS: BASOPHILS ABSOLUTE AUTO 0.02 K/mm3 (0.00-0.23); BASOPHILS PERCENT AUTO 0 % (0-2); EOSINOPHILS ABSOLUTE AUTO 0.06 K/mm3 (0.00-0.68); EOSINOPHILS PERCENT AUTO 0 % (0-6); Hemoglobin 10.2 g/dL (11.5-16.0); IMMATURE GRAN ABSOLUTE AUTO 0.17 K/mm3 (0.00-0.10); IMMATURE GRAN PERCENT AUTO 1 % (0-1); LYMPHOCYTES ABSOLUTE AUTO 1.23 K/mm3 (0.84-5.20); LYMPHOCYTES PERCENT AUTO 8 % (21-46); MONOCYTES ABSOLUTE AUTO 0.66 K/mm3 (0.16-1.47); MONOCYTES PERCENT AUTO 4 % (4-13); Mean Corpuscular HGB 30.2 pg (26.0-34.0); Mean Corpuscular Volume 89 fL (80-100); Mean Platelet Volume 12.6 fL (9.1-12.4); NEUTROPHILS ABSOLUTE AUTO 12.77 K/mm3 (1.96-9.15); NEUTROPHILS PERCENT AUTO 86 % (41-73); Platelet Count 175 K/mm3 (150-400); RDW Standard Deviation 49.1 fL (35.1-46.3); Red Blood Cell Count 3.38 M/mm3 (3.80-5.20); White Blood Cell Count 14.91 K/mm3 (4.00-11.30)
[2023-03-24 20:52] LABS: Bun/Creatinine Ratio 38.6 (12.0-20.0); Calcium, Blood 8.1 mg/dL (8.5-10.1); Creatinine, Blood 0.88 mg/dL (0.40-1.00)
[2023-03-25] VITALS (46 sets, daily range): BP systolic 125–184; BP diastolic 66–94
[2023-03-25 04:46] LABS: BASOPHILS ABSOLUTE AUTO 0.02 K/mm3 (0.00-0.23); BASOPHILS PERCENT AUTO 0 % (0-2); EOSINOPHILS ABSOLUTE AUTO 0.04 K/mm3 (0.00-0.68); EOSINOPHILS PERCENT AUTO 0 % (0-6); Hematocrit 31.5 % (33.0-51.0); Hemoglobin 10.7 g/dL (11.5-16.0); IMMATURE GRAN ABSOLUTE AUTO 0.27 K/mm3 (0.00-0.10); IMMATURE GRAN PERCENT AUTO 2 % (0-1); LYMPHOCYTES ABSOLUTE AUTO 1.37 K/mm3 (0.84-5.20); LYMPHOCYTES PERCENT AUTO 8 % (21-46); MONOCYTES ABSOLUTE AUTO 0.67 K/mm3 (0.16-1.47); MONOCYTES PERCENT AUTO 4 % (4-13); Mean Corpuscular HGB 30.1 pg (26.0-34.0); Mean Corpuscular Volume 89 fL (80-100); NEUTROPHILS PERCENT AUTO 86 % (41-73); Platelet Count 202 K/mm3 (150-400); RDW Coefficient Variation 14.8 % (11.7-14.2); Red Blood Cell Count 3.56 M/mm3 (3.80-5.20); White Blood Cell Count 16.67 K/mm3 (4.00-11.30)
[2023-03-25 05:12] LABS: Albumin, Blood 1.6 g/dL (3.4-5.0); Albumin/Globulin Ratio 0.3 (0.8-1.8); Bilirubin, Total 0.7 mg/dL (0.1-1.0); Bun/Creatinine Ratio 43.2 (12.0-20.0); Calcium, Blood 8.1 mg/dL (8.5-10.1); Creatinine, Blood 0.86 mg/dL (0.40-1.00); Globulin, Blood 4.6 g/dL (2.2-4.0); Magnesium, Blood 2.4 mg/dL (1.6-2.4); Phosphorus, Blood 2.5 mg/dL (2.5-4.9); Potassium, Blood 3.7 mmol/L (3.5-5.5); Total Protein, Blood 6.2 g/dL (6.4-8.2)
--- NOTE | 2023-03-25 06:22 | NUR ---
END OF SHIFT SUMMARY PT SEDATED AND INTUBATED. PROP AT 25 MCG, PRECEDEX ON SB. TF @ 10 MLS/HR WITH 200 Q4 FLUSHES. NO ACUTE CHANGES THIS SHIFT. PLEASE SEE ASSESSMENTS AND NOTES FOR MORE INFORMATION. WILL CONTINUE TO MONITOR UNTIL REPORT IS GIVEN.
--- NOTE | 2023-03-25 06:26 | NUR ---
UNABLE TO ESTABLISH ACTUAL WEIGHT D/T BED BEING BROKEN.
--- NOTE | 2023-03-25 07:00 | NUR ---
ASSUMPTION OF CARE PT RECEIVING PROPOFOL 25MCG/KG/MIN. SHE REMAINS INTUBATED WITH VENT SETTINGS AC/VC 18/400/5/40%. SHE MOVES HEAD AND WITHDRAWS FROM NOXIOUS STIMULI. COUGH/GAG INTACT. TUBE FEEDING INFUSING VIA OGT. ZALDIVAR PATENT AND DRAINING BERE URINE TO GRAVITY. MEGAN GOLDEN AT BEDSIDE. SEE SHIFT ASSESSMENT.
[2023-03-25 09:02] LABS: Vancomycin, Trough 23.1 ug/mL (5.0-10.0)
[2023-03-25 14:32] LABS: BASOPHILS ABSOLUTE AUTO 0.02 K/mm3 (0.00-0.23); BASOPHILS PERCENT AUTO 0 % (0-2); EOSINOPHILS ABSOLUTE AUTO 0.02 K/mm3 (0.00-0.68); EOSINOPHILS PERCENT AUTO 0 % (0-6); Hematocrit 30.1 % (33.0-51.0); Hemoglobin 10.2 g/dL (11.5-16.0); IMMATURE GRAN ABSOLUTE AUTO 0.33 K/mm3 (0.00-0.10); IMMATURE GRAN PERCENT AUTO 2 % (0-1); LYMPHOCYTES ABSOLUTE AUTO 1.04 K/mm3 (0.84-5.20); LYMPHOCYTES PERCENT AUTO 6 % (21-46); MONOCYTES ABSOLUTE AUTO 0.66 K/mm3 (0.16-1.47); MONOCYTES PERCENT AUTO 4 % (4-13); Mean Corpuscular HGB 30.1 pg (26.0-34.0); Mean Corpuscular HGB Conc 33.9 g/dL (31.5-36.5); Mean Corpuscular Volume 89 fL (80-100); Mean Platelet Volume 12.8 fL (9.1-12.4); NEUTROPHILS PERCENT AUTO 88 % (41-73); Platelet Count 183 K/mm3 (150-400); RDW Coefficient Variation 14.9 % (11.7-14.2); RDW Standard Deviation 48.1 fL (35.1-46.3); Red Blood Cell Count 3.39 M/mm3 (3.80-5.20); White Blood Cell Count 17.17 K/mm3 (4.00-11.30)
[2023-03-25 14:43] LABS: Albumin, Blood 1.5 g/dL (3.4-5.0); Albumin/Globulin Ratio 0.3 (0.8-1.8); Bilirubin, Total 0.8 mg/dL (0.1-1.0); Bun/Creatinine Ratio 44.2 (12.0-20.0); Calcium, Blood 8.1 mg/dL (8.5-10.1); Creatinine, Blood 0.77 mg/dL (0.40-1.00); Globulin, Blood 4.3 g/dL (2.2-4.0); Potassium, Blood 3.2 mmol/L (3.5-5.5); Total Protein, Blood 5.8 g/dL (6.4-8.2); Vancomycin, Random 17.1 ug/mL
--- NOTE | 2023-03-25 18:02 | NUR ---
SHIFT SUMMARY PT RECEIVING PROPOFOL 35MCG/KG/MIN. SHE REMAINS INTUBATED WITH VENT SETTINGS AC/VC 18/400/5/40%. PT WITHDRAWS FROM NOXIOUS STIMULI. TUBE FEEDING INFUSING VIA OGT AT 20ML/HR WITH GOAL RATE OF 30ML/HR. ZALDIVAR PATENT AND DRAINING TO GRAVITY. URINE IS CLOUDY YELLOW IN COLOR. GRANDSON HAS REMAINED AT BEDSIDE THROUGHOUT THE SHIFT AND UPDATED ON PT'S CONDITION. CALL LIGHT WITHIN REACH.
--- NOTE | 2023-03-25 19:09 | NUR ---
ASSUMED CARE OF PT AT 1900 BP 166/79 AT THIS TIME. PREV SHIFT GAVE FENT 15 MIN PRIOR TO BEDSIDE SHIFT REPORT. GRANDSON AT BEDSIDE. SEE FULL ASSESSMENT FOR FURTHER INFORMATION.
[2023-03-26] VITALS (56 sets, daily range): BP systolic 113–194; BP diastolic 54–91
[2023-03-26 03:34] LABS: BASOPHILS ABSOLUTE AUTO 0.02 K/mm3 (0.00-0.23); BASOPHILS PERCENT AUTO 0 % (0-2); EOSINOPHILS ABSOLUTE AUTO 0.04 K/mm3 (0.00-0.68); EOSINOPHILS PERCENT AUTO 0 % (0-6); Hematocrit 28.6 % (33.0-51.0); Hemoglobin 9.5 g/dL (11.5-16.0); IMMATURE GRAN ABSOLUTE AUTO 0.25 K/mm3 (0.00-0.10); IMMATURE GRAN PERCENT AUTO 2 % (0-1); LYMPHOCYTES ABSOLUTE AUTO 0.89 K/mm3 (0.84-5.20); LYMPHOCYTES PERCENT AUTO 7 % (21-46); MONOCYTES ABSOLUTE AUTO 0.54 K/mm3 (0.16-1.47); MONOCYTES PERCENT AUTO 4 % (4-13); Mean Corpuscular HGB 30.1 pg (26.0-34.0); Mean Corpuscular HGB Conc 33.2 g/dL (31.5-36.5); Mean Corpuscular Volume 91 fL (80-100); Mean Platelet Volume 12.4 fL (9.1-12.4); NEUTROPHILS ABSOLUTE AUTO 12.05 K/mm3 (1.96-9.15); NEUTROPHILS PERCENT AUTO 87 % (41-73); Platelet Count 165 K/mm3 (150-400); RDW Coefficient Variation 14.9 % (11.7-14.2); RDW Standard Deviation 49.1 fL (35.1-46.3); Red Blood Cell Count 3.16 M/mm3 (3.80-5.20); White Blood Cell Count 13.79 K/mm3 (4.00-11.30)
[2023-03-26 04:01] LABS: Albumin, Blood 1.3 g/dL (3.4-5.0); Albumin/Globulin Ratio 0.3 (0.8-1.8); Bilirubin, Total 0.7 mg/dL (0.1-1.0); Bun/Creatinine Ratio 37.6 (12.0-20.0); Calcium, Blood 7.6 mg/dL (8.5-10.1); Creatinine, Blood 0.77 mg/dL (0.40-1.00); Globulin, Blood 4.1 g/dL (2.2-4.0); Potassium, Blood 3.4 mmol/L (3.5-5.5); Total Protein, Blood 5.4 g/dL (6.4-8.2)
--- NOTE | 2023-03-26 05:28 | NUR ---
END OF SHIFT SUMMARY SEDATED AND INTUBATED. GRANDSON AT BEDSIDE. NO NEW CONCERNS AT THIS TIME. WILL CONTINUE TO MONITOR UNTIL REPORT GIVEN TO AM RN.
--- NOTE | 2023-03-26 07:00 | NUR ---
ASSUMPTION OF CARE PT RECEIVING PROPOFOL 25MCG/KG/MIN. SHE REMAINS INTUBATED WITH VENT SETTINGS AC/VC 18/400/5/30%. TUBE FEEDING INFUSING AT GOAL RATE. ZALDIVAR PATENT AN DDRAINING TO GRAVITY. GRANDSON AT BEDSIDE. SEE SHIFT ASSESSMENT.
[2023-03-26 13:05] LABS: BASOPHILS ABSOLUTE AUTO 0.03 K/mm3 (0.00-0.23); BASOPHILS PERCENT AUTO 0 % (0-2); EOSINOPHILS ABSOLUTE AUTO 0.03 K/mm3 (0.00-0.68); EOSINOPHILS PERCENT AUTO 0 % (0-6); Hematocrit 33.2 % (33.0-51.0); Hemoglobin 11.1 g/dL (11.5-16.0); IMMATURE GRAN ABSOLUTE AUTO 0.28 K/mm3 (0.00-0.10); IMMATURE GRAN PERCENT AUTO 2 % (0-1); LYMPHOCYTES ABSOLUTE AUTO 1.21 K/mm3 (0.84-5.20); LYMPHOCYTES PERCENT AUTO 7 % (21-46); MONOCYTES ABSOLUTE AUTO 0.66 K/mm3 (0.16-1.47); MONOCYTES PERCENT AUTO 4 % (4-13); Mean Corpuscular HGB 30.2 pg (26.0-34.0); Mean Corpuscular HGB Conc 33.4 g/dL (31.5-36.5); Mean Corpuscular Volume 90 fL (80-100); Mean Platelet Volume 12.7 fL (9.1-12.4); NEUTROPHILS ABSOLUTE AUTO 15.38 K/mm3 (1.96-9.15); NEUTROPHILS PERCENT AUTO 87 % (41-73); Platelet Count 190 K/mm3 (150-400); RDW Coefficient Variation 14.9 % (11.7-14.2); Red Blood Cell Count 3.68 M/mm3 (3.80-5.20); White Blood Cell Count 17.59 K/mm3 (4.00-11.30)
[2023-03-26 13:32] LABS: Albumin, Blood 1.6 g/dL (3.4-5.0); Albumin/Globulin Ratio 0.3 (0.8-1.8); Bilirubin, Total 0.8 mg/dL (0.1-1.0); Bun/Creatinine Ratio 38.7 (12.0-20.0); Calcium, Blood 7.9 mg/dL (8.5-10.1); Creatinine, Blood 0.7 mg/dL (0.40-1.00); Globulin, Blood 4.9 g/dL (2.2-4.0); Magnesium, Blood 2.2 mg/dL (1.6-2.4); Phosphorus, Blood 2.4 mg/dL (2.5-4.9); Potassium, Blood 3.3 mmol/L (3.5-5.5); Total Protein, Blood 6.5 g/dL (6.4-8.2)
--- NOTE | 2023-03-26 15:12 | NUR ---
SEDATION VACATION PROPOFOL OFF FOR APPROX 1.5HRS. PT OPENED EYES TO VERBAL STIMULI. PT GRIMACING. UNABLE TO FOLLOW COMMANDS INCLUDING SQUEEZING HANDS OR WIGGLING TOES. PT BECAME TACHYPNEIC WITH RATE IN 30S. HR TRENDING UP TO 90S-110S. HYPERTENSIVE WITH SBP 160-190. PROPOFOL RESTARTED AT 10MCG/KG/MIN.
--- NOTE | 2023-03-26 17:20 | NUR ---
SHIFT SUMMARY PT CONTINUES TO RECEIVE PROPOFOL 25MCG/KG/MIN. SHE REMAINS INTUBATED WITH VENT SETTINGS AC/VC 18/400/5/30%. DECREASED SECRETIONS TODAY. DURING SEDATION VACATION PT OPENED EYES TO VERBAL STIMULI BUT WAS UNABLE TO FOLLOW COMMANDS. TUBE FEEDING INFUSING AT GOAL RATE. ZALDIVAR PATENT AND DRAINING BERE COLORED URINE TO GRAVITY. GRANDSON REMAINS AT BEDSIDE AND UPDATED ON PT CONDITION.
--- NOTE | 2023-03-26 19:30 | NUR ---
ASSUMPTION OF CARE PT IS INTUBATED VIA ETT, INTACT AND PATENT TO THE VENT. BEDSIDE REPORT COMPLETED W/TALAT DOWNS. PT HAS BILATERAL BREATH SOUNDS, OXYGEN SAT 94% W/NO S/S OF RESP DISTRESS AT TIME OF ASSESSMENT. RAFA CHANTEL IS AT BEDSIDE. PT IS PACED W/RATE IN THE 90S ON THE BUSINESS RESILIENCY MANAGER. TF INFUSING AT GOAL. ZALDIVAR CATH IS INTACT PATENT AND DRAINING CLEAR YELLOW URINE.
[2023-03-27] VITALS (90 sets, daily range): BP systolic 103–180; BP diastolic 51–98
[2023-03-27 05:36] LABS: BASOPHILS ABSOLUTE AUTO 0.03 K/mm3 (0.00-0.23); BASOPHILS PERCENT AUTO 0 % (0-2); EOSINOPHILS ABSOLUTE AUTO 0.04 K/mm3 (0.00-0.68); EOSINOPHILS PERCENT AUTO 0 % (0-6); Hematocrit 29.3 % (33.0-51.0); Hemoglobin 9.7 g/dL (11.5-16.0); IMMATURE GRAN ABSOLUTE AUTO 0.14 K/mm3 (0.00-0.10); IMMATURE GRAN PERCENT AUTO 1 % (0-1); LYMPHOCYTES ABSOLUTE AUTO 0.78 K/mm3 (0.84-5.20); LYMPHOCYTES PERCENT AUTO 6 % (21-46); MONOCYTES ABSOLUTE AUTO 0.62 K/mm3 (0.16-1.47); MONOCYTES PERCENT AUTO 5 % (4-13); Mean Corpuscular HGB 30.2 pg (26.0-34.0); Mean Corpuscular HGB Conc 33.1 g/dL (31.5-36.5); Mean Corpuscular Volume 91 fL (80-100); Mean Platelet Volume 12.4 fL (9.1-12.4); NEUTROPHILS PERCENT AUTO 87 % (41-73); NRBC ABSOLUTE 0.03 K/mm3 (0.00-0.02); NRBC Auto 0.2 /100 WBC (0.0-0.2); Platelet Count 184 K/mm3 (150-400); RDW Coefficient Variation 15.1 % (11.7-14.2); RDW Standard Deviation 50.3 fL (35.1-46.3); Red Blood Cell Count 3.21 M/mm3 (3.80-5.20); White Blood Cell Count 12.51 K/mm3 (4.00-11.30)
[2023-03-27 05:48] LABS: Albumin, Blood 1.3 g/dL (3.4-5.0); Albumin/Globulin Ratio 0.3 (0.8-1.8); Bilirubin, Total 0.6 mg/dL (0.1-1.0); Bun/Creatinine Ratio 38.8 (12.0-20.0); Calcium, Blood 7.7 mg/dL (8.5-10.1); Creatinine, Blood 0.8 mg/dL (0.40-1.00); Globulin, Blood 4.5 g/dL (2.2-4.0); Phosphorus, Blood 2.7 mg/dL (2.5-4.9); Potassium, Blood 3.6 mmol/L (3.5-5.5); Total Protein, Blood 5.8 g/dL (6.4-8.2)
--- NOTE | 2023-03-27 06:04 | NUR ---
SHIFT SUMMERY PT REMAINS INTUBATED W/ETT INTACT AND PATENT TO THE VENT. OXYGEN SAT 95% W/NO S/S OF ACUTE RESP DISTRESS AT THIS TIME. PT HAS BEEN AFEBRILE OVERNIGHT. HR HAS BEEN IN THE 90S ON THE CLOTHING MANAGER, BP WNL. TF AT GOAL, PT TOLERATING WELL. PROPOFOL INFUSING FOR SEDATION. GRANDSON AT BEDSIDE. NO ACUTE CHANGES OVERNIGHT.
--- NOTE | 2023-03-27 08:46 | NUR ---
AM NOTE... ASSUMED CARE OF PT AT 0700, PT IS INTUBATED AND SEDATED, PROPOFOL IS RUNNING AT 40MCG, PT'S VENT SETTINGS ARE AC/VC: 18/400/5/30% WITH O2 SATS>95% L/S CLEAR T/O. SHE IS 100 PACED IN THE 80'S BP IS STABLE WITH MAPS>65. 2+ EDEMA IS NOTED TO HER BLE. OG TUBE IS RUNNING TUBE FEEDS PER ORDERS, BT PRESENT AND HYPOACTIVE ABD IS SOFT TO PALPATION. ZALDIVAR IS PATENT AND DRAINING TO GRAVITY. WILL CONTINUE TO MONITOR.
[2023-03-27 16:09] LABS: Vancomycin, Trough 9.2 ug/mL (5.0-10.0)
--- NOTE | 2023-03-27 18:22 | NUR ---
SHIFT SUMMARY... THE PT'S TMAX THIS SHIFT WAS 101.7 PER RECTAL TEMP, PT MEDICATED WITH TYLENOL PER ORDERS WITH MINIMAL RESULTS. PT'S SEDATION WAS STOPPED FOR APROX 3HRS SHE WAS ABLE TO OPEN HER EYES WHEN HER NAME WAS CALLED AND ATTEMPTED TO REACH FOR THE ET TUBE BUT WAS NOT ABLE TO FOLLOW COMMANDS. SHE BECAME VERY HYPERTENSIVE WITH SBPs IN THE 180'S WHILE NOT ON SEDATION. CPT WAS STARTED BY RT THIS SHIFT. TUBE FEEDS RUNNING PER ORDERS AT GOAL OF 40MLS/HR WITH 200MLS OF H2O FLUSHES. ZALDIVAR IS PATENT AND DRAINING TO GRAVITY. PT'S GRANDSON WAS AT THE BEDSIDE T/O THIS SHIFT. WILL CONTINUE TO [facility] UNTIL REPORT IS GIVEN TO ONCOMING RN.
[2023-03-28] VITALS (74 sets, daily range): BP systolic 122–194; BP diastolic 50–111
[2023-03-28 05:33] LABS: BASOPHILS ABSOLUTE AUTO 0.01 K/mm3 (0.00-0.23); BASOPHILS PERCENT AUTO 0 % (0-2); EOSINOPHILS ABSOLUTE AUTO 0.12 K/mm3 (0.00-0.68); EOSINOPHILS PERCENT AUTO 1 % (0-6); Hematocrit 26.5 % (33.0-51.0); Hemoglobin 8.8 g/dL (11.5-16.0); IMMATURE GRAN ABSOLUTE AUTO 0.13 K/mm3 (0.00-0.10); IMMATURE GRAN PERCENT AUTO 1 % (0-1); LYMPHOCYTES ABSOLUTE AUTO 0.84 K/mm3 (0.84-5.20); LYMPHOCYTES PERCENT AUTO 8 % (21-46); MONOCYTES ABSOLUTE AUTO 0.48 K/mm3 (0.16-1.47); MONOCYTES PERCENT AUTO 4 % (4-13); Mean Corpuscular HGB 30.7 pg (26.0-34.0); Mean Corpuscular HGB Conc 33.2 g/dL (31.5-36.5); Mean Corpuscular Volume 92 fL (80-100); Mean Platelet Volume 12.3 fL (9.1-12.4); NEUTROPHILS ABSOLUTE AUTO 9.58 K/mm3 (1.96-9.15); NEUTROPHILS PERCENT AUTO 86 % (41-73); Platelet Count 223 K/mm3 (150-400); RDW Coefficient Variation 14.7 % (11.7-14.2); RDW Standard Deviation 49.8 fL (35.1-46.3); Red Blood Cell Count 2.87 M/mm3 (3.80-5.20); White Blood Cell Count 11.16 K/mm3 (4.00-11.30)
--- NOTE | 2023-03-28 05:51 | NUR ---
SHIFT SUMMERY PT REMAINS INTUBATED AND SEDATED W/PROPOFOL. SHE HAS BEEN PACED ON THE SUCTION PLATE CARRIER CLEANER W/ BP WNL. ZALDIVAR CATH INTACT PATENT AND DRAINING TO GRAVITY. TF INFUSING AT GOAL AT THIS TIME. NO ACUTE CHANGES OVERNIGHT.
[2023-03-28 05:56] LABS: Albumin, Blood 1.3 g/dL (3.4-5.0); Albumin/Globulin Ratio 0.3 (0.8-1.8); Bilirubin, Total 0.5 mg/dL (0.1-1.0); Bun/Creatinine Ratio 44.1 (12.0-20.0); Calcium, Blood 7.9 mg/dL (8.5-10.1); Creatinine, Blood 0.75 mg/dL (0.40-1.00); Globulin, Blood 4.4 g/dL (2.2-4.0); Magnesium, Blood 2.2 mg/dL (1.6-2.4); Phosphorus, Blood 2.9 mg/dL (2.5-4.9); Potassium, Blood 3.5 mmol/L (3.5-5.5); Total Protein, Blood 5.7 g/dL (6.4-8.2)
--- NOTE | 2023-03-28 10:14 | NUR ---
ASSUMPTION OF CARE REPORT RECEIVED FROM ELSA RN. PT RESTING IN BED. INTUBATED AND SEDATED WITH PROPOFOL INFUSING AT 30 MCG/KG. PT WITHDRAWS EXTRMEITIES FROM NOXIOUS STIMULI. HR PACED, 60-70'S, MAP >65. VENTILATOR SETTINGS AC/VC 18/400/5/30%. POWERGLIDE TO ANDREW AND SUDHIR. LEFT ARM MORE EDEMATOUS THAN THE RIGHT. PATENCY OF PAWERGLIDE TO SUDHIR VERIFIED BY ULTRASOUND. TEMP ZALDIVAR PATENT DRAINING TO GRAVITY. PT HAS A FEVER OF 100.7. OG TUBE IN PLACE, TUBE FEEDS GOING AT 40MLS/HR. FAMILY AT BEDSIDE.
--- NOTE | 2023-03-28 18:16 | NUR ---
SHIFT SUMMARY PT RESTING IN BED. WITHDRAWLS EXTREMITIES FROM NOXIOUS STIMULI. HR PACED 60-70'S, MAP > 65. INTUBATED AND SEDATED, PROPOFOL INFUSING AT 30MCG/KG. VENTILATOR SETTINGS AC/VC 18/400/5/30%, OXYGEN SATURATION > 95%. POWERGLIDE TO SUDHIR AND ANDREW. NS INFUSING TKO. TEMP ZALDIVAR IN PLACE PATENT DRAINING YELLOW URINE TO GRAVITY. OG TUBE IN PLACE, TUBE FEED INFUSING AT GOAL RATE AT THIS TIME.
[2023-03-29] VITALS (21 sets, daily range): BP systolic 112–182; BP diastolic 58–83
[2023-03-29 03:38] LABS: BASOPHILS ABSOLUTE AUTO 0.02 K/mm3 (0.00-0.23); BASOPHILS PERCENT AUTO 0 % (0-2); EOSINOPHILS ABSOLUTE AUTO 0.14 K/mm3 (0.00-0.68); EOSINOPHILS PERCENT AUTO 1 % (0-6); Hematocrit 27.5 % (33.0-51.0); Hemoglobin 8.8 g/dL (11.5-16.0); IMMATURE GRAN ABSOLUTE AUTO 0.09 K/mm3 (0.00-0.10); IMMATURE GRAN PERCENT AUTO 1 % (0-1); LYMPHOCYTES ABSOLUTE AUTO 0.98 K/mm3 (0.84-5.20); LYMPHOCYTES PERCENT AUTO 8 % (21-46); MONOCYTES ABSOLUTE AUTO 0.42 K/mm3 (0.16-1.47); MONOCYTES PERCENT AUTO 3 % (4-13); Mean Corpuscular HGB 30.3 pg (26.0-34.0); Mean Corpuscular Volume 95 fL (80-100); Mean Platelet Volume 12.3 fL (9.1-12.4); NEUTROPHILS ABSOLUTE AUTO 11.04 K/mm3 (1.96-9.15); NEUTROPHILS PERCENT AUTO 87 % (41-73); Platelet Count 271 K/mm3 (150-400); RDW Standard Deviation 51.8 fL (35.1-46.3); White Blood Cell Count 12.69 K/mm3 (4.00-11.30)
[2023-03-29 04:24] LABS: Albumin, Blood 1.4 g/dL (3.4-5.0); Anion Gap 7 mmol/L (6-16); Blood Urea Nitrogen 33 mg/dL (8-24); Bun/Creatinine Ratio 56.9 (12.0-20.0); CO2, Blood 26 mmol/L (21-32); Calcium, Blood 7.9 mg/dL (8.5-10.1); Chloride, Blood 107 mmol/L (98-108); Creatinine, Blood 0.58 mg/dL (0.40-1.00); Glomerular Filtration Rate 97 (60-); Glucose, Blood 224 mg/dL (70-99); Potassium, Blood 3.3 mmol/L (3.5-5.5); Sodium, Blood 140 mmol/L (136-145)
--- NOTE | 2023-03-29 06:53 | NUR ---
SHIFT SUMMERY PT REMAINS INTUBATED VIA ETT TUBE. OXYGEN SAT 98%. SHE HAS BEEN FEBRILE, BLOOD CULTURES DRAWN THIS AM. SHE IS SEDATED ON PROPOFOL. SHE IS PACED ON THE DIRECTOR OF FLIGHT OPERATIONS W/RATE IN THE 70S. BP WNL. ZALDIVAR CATH INTACT AND DRAINING YELLOW URINE. GRANDSON AT BEDSIDE. SHE HAS HAD NO ACUTE CHANGES OR DISTRESS OVERNIGHT.
--- NOTE | 2023-03-29 09:17 | NUR ---
ASSUMPTION OF CARE REPORT RECEIVED FROM ELSA RN. PATIENT RESTING IN BED, FAMILY AT BEDSIDE. PT GRIMACES AND WITHDRAWLS EXTREMITIES FROM NOXIOUS STIMULI. HR PACED, 70-80'S, MAP > 65. PT INTUBATED AND SEDATED, PROPOFOL INFUSING AT 30MCG/KG. NS INFUSING TKO. VENTILATOR SETTINGS AC/VC 18/400/5/30%, OXYGEN SATURATION >95%. POWERGLIDE TO SUDHIR AND ANDREW. TUBE FEEDS INFUSING AT GOAL RATE OF 40MLS/HR. TEMP ZALDIVAR IN PLACE PATENT DRAINING TO GRAVITY, PT HAS A TEMPERATURE OF 99.9.
--- NOTE | 2023-03-29 18:18 | NUR ---
SHIFT SUMMARY PT RESTING IN BED. GRIMACES AND WITHDRAWLS ALL EXTREMITIES TO NOXIOUS STIMULI, OCCASIONALLY OPENS EYES. HR PACED 80-90'S MAP >65. INTUBATED AND SEDATED, PROPOFOL INFUSING AT 30MCG/KG. PT HAD SPONTANEOUS BREATHING TRIAL LASTING APPROXIMATELY 15 MINUTES DURING THIS SHIFT. VENTILATOR SETTINGS AC/VC 18/400/5/30% OXYGEN SATURATION >95%. PT HAD TMAX OF 104.0, MEDICATED WITH TYLENOL PER EMAR, FAN IN PLACE, AND COOL BED BATH GIVEN. PT TEMP NOW 101.6. TUBE FEEDS INFUSING AT GOAL RATE OF 40MLS/HR. POWERGLIDE IN PLACE TO RIGHT AND LEFT UPPER ARM. NS TKO INFUSING. ZALDIVAR PATENT DRAINING TO GRAVITY. CULTURE TAKEN FROM WOUND ON RIGHT FLANK. FAMILY AT THE BEDSIDE.
[2023-03-30] VITALS (25 sets, daily range): BP systolic 110–175; BP diastolic 53–82
[2023-03-30 05:56] LABS: BASOPHILS ABSOLUTE AUTO 0.03 K/mm3 (0.00-0.23); BASOPHILS PERCENT AUTO 0 % (0-2); EOSINOPHILS ABSOLUTE AUTO 0.16 K/mm3 (0.00-0.68); EOSINOPHILS PERCENT AUTO 1 % (0-6); Hematocrit 26.2 % (33.0-51.0); Hemoglobin 8.6 g/dL (11.5-16.0); IMMATURE GRAN ABSOLUTE AUTO 0.09 K/mm3 (0.00-0.10); IMMATURE GRAN PERCENT AUTO 1 % (0-1); LYMPHOCYTES ABSOLUTE AUTO 0.71 K/mm3 (0.84-5.20); LYMPHOCYTES PERCENT AUTO 6 % (21-46); MONOCYTES ABSOLUTE AUTO 0.33 K/mm3 (0.16-1.47); MONOCYTES PERCENT AUTO 3 % (4-13); Mean Corpuscular HGB 30.6 pg (26.0-34.0); Mean Corpuscular HGB Conc 32.8 g/dL (31.5-36.5); Mean Corpuscular Volume 93 fL (80-100); Mean Platelet Volume 11.7 fL (9.1-12.4); NEUTROPHILS ABSOLUTE AUTO 11.07 K/mm3 (1.96-9.15); NEUTROPHILS PERCENT AUTO 89 % (41-73); NRBC ABSOLUTE 0.02 K/mm3 (0.00-0.02); NRBC Auto 0.2 /100 WBC (0.0-0.2); Platelet Count 248 K/mm3 (150-400); RDW Coefficient Variation 14.8 % (11.7-14.2); RDW Standard Deviation 50.5 fL (35.1-46.3); Red Blood Cell Count 2.81 M/mm3 (3.80-5.20); White Blood Cell Count 12.39 K/mm3 (4.00-11.30)
--- NOTE | 2023-03-30 06:13 | NUR ---
SHIFT SUMMERY PT REMAINS INTUBATED AND SEDATED. PROFOFOL IS INFUSING AT 30MCGS FOR SEDATION. PT HAS TF INFUSING AT GOAL. SHE WAS FEBRILE OVERNIGHT, TREATED W/TYLENOL WHICH WAS EFFECTIVE PER EMAR. PT HAS ZALDIVAR CATH DRAINING YELLOW URINE. NO BM THIS SHIFT. THERE HAVE BEEN NO ACUTE CHANGES OVERNIGHT. VS HAVE REMAINED STABLE.
[2023-03-30 06:54] LABS: Albumin, Blood 1.4 g/dL (3.4-5.0); Blood Urea Nitrogen 33 mg/dL (8-24); Bun/Creatinine Ratio 55.7 (12.0-20.0); CO2, Blood 28 mmol/L (21-32); Calcium, Blood 8.1 mg/dL (8.5-10.1); Creatinine, Blood 0.59 mg/dL (0.40-1.00); Glomerular Filtration Rate 97 (60-); Glucose, Blood 205 mg/dL (70-99); Phosphorus, Blood 3.7 mg/dL (2.5-4.9)
--- NOTE | 2023-03-30 08:10 | NUR ---
DR. ALVARES UPDATED ON PATIENT STATUS. INFORMED THAT PATIENT EDEMATOUS. INFORMED THAT PATIENT HAD TEMP OF 101.4 DEGREES FAHRENHEIT THIS AM AND THAT PRN TYLENOL GIVEN. INFORMED THAT THE NEW BLOOD CULTURES ARE SHOWING GROWTH OF GRAM + COCCI IN CLUSTERS. NO ORDERS RECEIVED AT THIS TIME.
--- NOTE | 2023-03-30 08:40 | NUR ---
INITIAL ASSESSMENT PATIENT INTUBATED AND ON SEDATION. PATIENT RESPONDS TO NOXIOUS STIMULI AND NURSING CARE. PATIENT WEAK BUT ABLE TO MOVE ALL EXTREMITIES. PATIENT HAS CORE TEMP OF 101.4 DEGREES FAHRENHEIT. PRN TYLENOL GIVEN FOR FEVER AND GRIMACING OF FACE. PATIENT ON ACVC 18, TV 400, PEEP 5 AND 30% FIO2. LUNGS CLEAR, LOWER LOBES DIMINISHED. SCANT AMOUNT OF THICK, ESPARZA SECRETIONS NOTED WITH SUCTIONING. PATIENT V. PACED, HR IN THE 80S. SBP IN THE 130S. PATIENT EDEMATOUS. ABD MODERATELY DISTENDED WITH NORMOACTIVE BOWEL SOUNDS NOTED. VHP INFUSING AT 40 MLS/ HOUR WITH 200 ML WATER FLUSH Q4H. ZALDIVAR DRAINING BERE COLORED URINE. PATIENT RECEIVING SCHEDULED LASIX. MOTTLING TO LOWER BACK. SCATTERED SCABS AND BRUISES NOTED. SKIN FOLDS REDDENED. OPEN WOUNDS TO HIP/ THIGH. PROPOFOL INFUSING AT 30 MCG/ KG/ MINUTE. BED LOW, CALL LIGHT IN REACH. GRANDSON AT BEDSIDE.
--- NOTE | 2023-03-30 12:00 | NUR ---
PROPOFOL ON SB. PATIENT OPENING EYES TO VOICE OCCASIONALLY BUT NOT TRACKING OR FOLLOWING ANY COMMANDS. CORE TEMP 99.7 DEGREES FAHRENHEIT. HR 70S TO 80S. SBP IN THE 150S. NO OTHER ACUTE CHANGES TO NOTE ON AT THIS TIME. BED LOW, CALL LIGHT IN REACH.
[2023-03-30 14:03] LABS: Anion Gap 5 mmol/L (6-16); Chloride, Blood 107 mmol/L (98-108); Potassium, Blood 3.7 mmol/L (3.5-5.5); Sodium, Blood 140 mmol/L (136-145)
--- NOTE | 2023-03-30 16:21 | NUR ---
PATIENT REMAINS INTUBATED. PATIENT HAS BEEN OFF SEDATION SINCE 1100. PATIENT IS NOW OPENING EYES WHEN NURSE ASKS AND LOOKING AT NURSE. PATIENT SLIGHTLY MOVING ARMS WITHOUT NOXIOUS STIMULI APPLIED. PATIENT CALM. TYLENOL GIVEN FOR CORE TEMP OF 101.6 DEGREES FAHRENHEIT. HR IN THE 80S. SBP IN THE 170S. SCHEDULED METOPROLOL GIVEN. NO SIGNS OF PAIN NOTED AT THIS TIME.
--- NOTE | 2023-03-30 19:10 | NUR ---
SHIFT SUMMARY PATIENT REMAINED INTUBATED THIS SHIFT. PROPOFOL PLACED ON SB AROUND 1100 THIS AM. PATIENT HAS TAKEN LONG TIME TO START WAKING UP. SHORT TIME AGO PATIENT STARTED TO LOOK AROUND MORE, RESPOND TO VERBAL STIMULI AND START TO MOVE ARMS AROUND. PATIENT IS CALM IN BED AT THIS TIME. NO SIGNS OF PAIN NOTED. PATIENT GIVEN PRN TYLENOL TWICE THIS SHIFT FOR FEVER. PATIENT HAD TMAX OF 101.7 DEGREES FAHRENHEIT THIS SHIFT. PATIENT ON WEAN FOR A WHILE TODAY AND PLACED BACK ON FOR INCREASED RR. DR. ALVARES STATES TO KEEP PATIENT OFF PROPOFOL IF APPEARS COMFORTABLE AND TO USE PRECEDEX IF NEED TO PLACE BACK ON SEDATION. PATIENT ON ACVC 18, TV 400, PEEP 5 AND FIO2 OF 40%. PATIENT REMAINED V. PACED, HR 70S TO 80S. SBP 120S TO 170S. SBP BACK DOWN TO 150S FROM 170S AFTER SCHEDULED METOPROLOL GIVEN. NO BM THIS SHIFT. TF REMAINED AT GOAL RATE. ZALDIVAR DRAINED 1700 MLS OF BERE COLORED URINE. NO CHANGES TO SKIN NOTED. SKIN FOLDS MUCH IMPROVED FROM A WEEK AGO. LASIX DOSE INCREASED THIS SHIFT. BLOOD SUGARS 100S TO 200S THIS SHIFT. GRANDSON HAS REMAINED AT BEDSIDE. 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
--- NOTE | 2023-03-30 20:48 | NUR ---
ASSESSMENT: PT INTUBATED WITH RASS -1; PROPOFOL IS ON STANDBY. OPENS EYES TO VERBAL COMMANDS BUT IS TOO WEAK TO SQUEEZE MY HANDS OR REACH TOWARD ETT; NO RESTRAINTS ON AT THIS TIME. GRIMACES WITH ORAL CARE AND MOVEMENT. LS CLEAR BUT DIMINISHED IN THE BASES WITH BIOX 97% ON VENT SETTINGS AC 18, TV 400, FIO2 30% AND PEEP 5. ORAL CARE DONE WITH SCANT AMOUNT OF THICK ESPARZA SECRETIONS OUT. 8.0 ETT 23CM AT GUMS. HEART SOUNDS S1 AND S2 AUSCULTATED WITH MONITOR SHOWING 100% V PACED WITH OCCASSIONAL A PACED WITH HR 80. SKIN PINK, WARM AND DRY WITH PPP BILAT AND STRONG. BILAT RADIAL PULSES STRONG. BRUISES NOTED TO LOWER BACK AREA. SUDHIR POWERGLIDE WITH NS @ 10CC/HR; ARM IS SWOLLEN AND POWERGLIDE DOES NOT DRAW BACK. ANDREW POWERGLIDE DRAWS BACK AND FLUSHED. ABD R/D WITH HYPO BTX4. TUBE FEEDINGS VITAL HIGH PROTEIN @40CC/HR WITH Q4HR WATER FLUSH OF 200CC. ZALDIVAR DRAINING CLEAR YELLOW URINE.
--- NOTE | 2023-03-30 22:51 | NUR ---
SCANNED SUDHIR ABOVE POWERGLIDE WITH SONOSITE TO VERIFY THAT POWERGLIDE HASN'T INFILTRATED; POWERGLIDE TIP IS IN VEIN. L ARM IS SWOLLEN; MORE THAN R ARM. BILAT POWERGLIDE DRESSINGS CHANGED. PAS PLACED ON CALVES. COMPLETE BED BATH GIVEN AND LINENS CHANGED.
[2023-03-31] VITALS (24 sets, daily range): BP systolic 123–179; BP diastolic 51–77
[2023-03-31 05:20] LABS: BASOPHILS ABSOLUTE AUTO 0.02 K/mm3 (0.00-0.23); BASOPHILS PERCENT AUTO 0 % (0-2); EOSINOPHILS ABSOLUTE AUTO 0.12 K/mm3 (0.00-0.68); EOSINOPHILS PERCENT AUTO 1 % (0-6); Hematocrit 25.6 % (33.0-51.0); Hemoglobin 8.3 g/dL (11.5-16.0); IMMATURE GRAN ABSOLUTE AUTO 0.08 K/mm3 (0.00-0.10); IMMATURE GRAN PERCENT AUTO 1 % (0-1); LYMPHOCYTES ABSOLUTE AUTO 0.81 K/mm3 (0.84-5.20); LYMPHOCYTES PERCENT AUTO 7 % (21-46); MONOCYTES ABSOLUTE AUTO 0.39 K/mm3 (0.16-1.47); MONOCYTES PERCENT AUTO 4 % (4-13); Mean Corpuscular HGB 30.2 pg (26.0-34.0); Mean Corpuscular HGB Conc 32.4 g/dL (31.5-36.5); Mean Corpuscular Volume 93 fL (80-100); Mean Platelet Volume 12.5 fL (9.1-12.4); NEUTROPHILS PERCENT AUTO 87 % (41-73); Platelet Count 296 K/mm3 (150-400); RDW Coefficient Variation 14.8 % (11.7-14.2); RDW Standard Deviation 49.6 fL (35.1-46.3); Red Blood Cell Count 2.75 M/mm3 (3.80-5.20); White Blood Cell Count 11.02 K/mm3 (4.00-11.30)
[2023-03-31 05:37] LABS: Albumin, Blood 1.4 g/dL (3.4-5.0); Anion Gap 6 mmol/L (6-16); Blood Urea Nitrogen 38 mg/dL (8-24); Bun/Creatinine Ratio 61.6 (12.0-20.0); CO2, Blood 29 mmol/L (21-32); Calcium, Blood 8.2 mg/dL (8.5-10.1); Chloride, Blood 106 mmol/L (98-108); Creatinine, Blood 0.62 mg/dL (0.40-1.00); Glomerular Filtration Rate 96 (60-); Glucose, Blood 220 mg/dL (70-99); Phosphorus, Blood 3.1 mg/dL (2.5-4.9); Potassium, Blood 3.3 mmol/L (3.5-5.5); Sodium, Blood 141 mmol/L (136-145)
--- NOTE | 2023-03-31 05:53 | NUR ---
SHIFT SUMMARY: SEDATION CONTINUES TO BE OFF ALL NIGHT; MEDICATED ONCE WITH FENTANYL FOR PAIN AFTER A TURN. PT TOO WEAK TO REACH FOR ETT; GRANDSON AT BEDSIDE. TEMP MAX 101.7; MEDICATED WITH TYLENOL ONCE AND FAN ON. L ARM SWOLLEN; USED SONOSITE TO LOOK AT POWERGLIDE, ABLE TO SEE TIP IN VEIN. WILL PASS ON TO DAYSHIFT.
--- NOTE | 2023-03-31 09:25 | NUR ---
AM NOTE... ASSUMED CARE OF PT AT 0700, PT IS INTUBATED, SEDATION HAS BEEN OFF SINCE YESTERDAY. SHE IS ABLE TO OPEN HER EYES TO VERBAL STIMULI BUT NOT FOLLOW DIRECTIONS AT THIS TIME SHE WILL MOVE HER ARMS AND FEET. SHE IS ON ACVC: 18/400/5/30% WITH O2 SATS>95% L/S CLEAR T/O DIM IN THE BASES. SHE IS 100% PACED IN THE 70'S-90'S. SHE HAS 2+ EDEMA NOTED TO HER BLE, 3+ TO HER LUE AND 2+ TO HER RUE. OG TUBE IS PATENT WITH TUBE FEEDS RUNNING PER ORDERS, BT PRESENT AND HYPOACTIVE, ABD IS SOFT TO PALPATION. ZALDIVAR IS PATENT AND DRAINING TO GRAVITY. WILL CONTINUE TO MONITOR.
--- NOTE | 2023-03-31 17:35 | NUR ---
SHIFT SUMMARY.... NO ACUTE NEGATIVE CHANGES NOTED THIS SHIFT. THE PT'S VS WERE STABLE. SHE IS STILL OFF OF SEDATION WITH PRN FENTANYL PUSHES FOR COMFORT/COUGHING FITS. THE PT IS MORE AWAKE AND TRACKING WITH HER EYES, MOVING HER ARMS/LEGS BUT NOT FOLLOWING COMMANDS. THE PT'S ZALDIVAR IS PATENT AND DRAINING TO GRAVITY. THE PT WAS STARTED ON BOWEL CARE THIS SHIFT AND GIVEN A SUPPOSITORY. THE PT HAD 1 SMALL LIQUID BROWN STOOL A RESULT. THE POWERGLIDE TO THE PT'S SUDHIR WAS D/C'd D/T A THROMBUS IN THE SAME VEIN THE LINE, PROVIDER NOTIFIED AND THE LINE WAS PULLED. WILL CONTINUE TO MONITOR UNTIL REPORT IS GIVEN TO ONCOMING RN.
--- NOTE | 2023-03-31 19:54 | NUR ---
SHIFT ASSESSMENT: PT INTUBATED WITH RASS -1; SEDATION HAS BEEN OFF ALL DAY. OPENS EYES TO VERBAL COMMANDS BUT IS TOO WEAK TO SQUEEZE MY HANDS SLIGHTLY REACHES TOWARD ETT; NO RESTRAINTS ON AT THIS TIME. GRIMACES WITH ORAL CARE AND MOVEMENT. LS CLEAR BUT DIMINISHED L>R IN THE BASES WITH BIOX 97% ON VENT SETTINGS AC 18, TV 400, FIO2 30% AND PEEP 5. ORAL CARE DONE WITH SCANT AMOUNT OF THICK ESPARZA SECRETIONS OUT. 8.0 ETT 23CM AT GUMS. HEART SOUNDS S1 AND S2 AUSCULTATED WITH MONITOR SHOWING 100% AV PACED WITH HR 80. SKIN PINK, WARM AND DRY WITH PPP BILAT AND STRONG. BILAT RADIAL PULSES STRONG. BRUISES NOTED TO LOWER BACK AREA. SUDHIR SWOLLEN; US WAS DONE TODAY AND SHOWED SUPERFICIAL VEIN THROMBOSIS. ANDREW POWERGLIDE DRAWS BACK AND FLUSHES EASILY; NS @ 10CC/HR. ABD R/D WITH HYPER BTX4. TUBE FEEDINGS VITAL HIGH PROTEIN @40CC/HR WITH Q4HR WATER FLUSH OF 200CC. ZALDIVAR DRAINING CLEAR YELLOW URINE. GRANDSON AT BEDSIDE.
[2023-04-01] VITALS (24 sets, daily range): BP systolic 112–158; BP diastolic 51–77
[2023-04-01 05:00] LABS: BASOPHILS ABSOLUTE AUTO 0.02 K/mm3 (0.00-0.23); BASOPHILS PERCENT AUTO 0 % (0-2); EOSINOPHILS ABSOLUTE AUTO 0.12 K/mm3 (0.00-0.68); EOSINOPHILS PERCENT AUTO 1 % (0-6); Hematocrit 24.4 % (33.0-51.0); Hemoglobin 7.9 g/dL (11.5-16.0); IMMATURE GRAN ABSOLUTE AUTO 0.06 K/mm3 (0.00-0.10); IMMATURE GRAN PERCENT AUTO 1 % (0-1); LYMPHOCYTES ABSOLUTE AUTO 0.92 K/mm3 (0.84-5.20); LYMPHOCYTES PERCENT AUTO 10 % (21-46); MONOCYTES ABSOLUTE AUTO 0.38 K/mm3 (0.16-1.47); MONOCYTES PERCENT AUTO 4 % (4-13); Mean Corpuscular HGB 30.4 pg (26.0-34.0); Mean Corpuscular HGB Conc 32.4 g/dL (31.5-36.5); Mean Corpuscular Volume 94 fL (80-100); Mean Platelet Volume 12.1 fL (9.1-12.4); NEUTROPHILS ABSOLUTE AUTO 7.58 K/mm3 (1.96-9.15); NEUTROPHILS PERCENT AUTO 84 % (41-73); Platelet Count 308 K/mm3 (150-400); RDW Coefficient Variation 14.6 % (11.7-14.2); RDW Standard Deviation 49.4 fL (35.1-46.3); White Blood Cell Count 9.08 K/mm3 (4.00-11.30)
[2023-04-01 05:16] LABS: Albumin, Blood 1.4 g/dL (3.4-5.0); Albumin/Globulin Ratio 0.3 (0.8-1.8); Bilirubin, Direct 0.2 mg/dL (0.0-0.3); Bilirubin, Indirect 0.2 mg/dL (0.1-0.7); Bilirubin, Total 0.4 mg/dL (0.1-1.0); Bun/Creatinine Ratio 63.8 (12.0-20.0); Calcium, Blood 8.3 mg/dL (8.5-10.1); Creatinine, Blood 0.56 mg/dL (0.40-1.00); Globulin, Blood 4.6 g/dL (2.2-4.0); Phosphorus, Blood 3.1 mg/dL (2.5-4.9); Potassium, Blood 3.5 mmol/L (3.5-5.5)
--- NOTE | 2023-04-01 05:38 | NUR ---
SHIFT SUMMARY: NO SEDATION ALL NIGHT; PT WILL LOOK AT ME, BUT DOES NOT RESPOND. PT WILL ATTEMPT TO REACH TOWARD ETT, BUT IS TOO WEAK. TEMP MAX 100.5; MEDICATED WITH TYLENOL.
--- NOTE | 2023-04-01 07:15 | NUR ---
ASSUMED CARE: PT LAYING IN BED, AWAKE BUT WEAK. ARMS NOT RESTRAINED, RAISES BUT UNABLE TO KEEP UP. ON VENT AC 18/400/5/30%. PACED AT 105 AT THIS TIME. TF GOING AT THIS TIME. HRIS ADMINISTRATOR AT BEDSIDE. GRANDSON AT BEDSIDE DURING REPORT. NO FURTHER NEEDS OR CONCERNS AT THIS TIME.
--- NOTE | 2023-04-01 18:18 | NUR ---
SHIFT SUMMARY: PT REMAINS ON AC 18/400/5/30%. NO CHANGES TO VENT THIS SHIFT. PT REMAINS OFF OF SEDATION. PACED AT 83. TF AT GOAL AND TUBING CHANGED. ZALDIVAR IN PLACE FOR SKIN PROTECTION OF CELINE AREA. TYLENOL ADMINSTERED ONCE FOR FEVER OF 100.6. GRANDSON REMAINS AT BEDSIDE. AWAITING TRANSFER TO [facility]. NO ACUTE NEEDS OR CONCERNS AT THIS TIME.
--- NOTE | 2023-04-01 19:18 | NUR ---
ASSUMED CARE OF PT AT 1900 PT INTUBATED WITHOUT SEDATION AT THIS TIME. PT MOVING LIMBS BEDSIDE REPORT GIVEN. GRANDSON AT BEDSIDE. VITALS WNL. SLIGHT FEVER OF 100.4. SEE FULL ASSESSMENT FOR FURTHER INFORMATION.
[2023-04-02] VITALS (20 sets, daily range): BP systolic 131–206; BP diastolic 57–103
[2023-04-02 03:29] LABS: BASOPHILS ABSOLUTE AUTO 0.02 K/mm3 (0.00-0.23); BASOPHILS PERCENT AUTO 0 % (0-2); EOSINOPHILS ABSOLUTE AUTO 0.15 K/mm3 (0.00-0.68); EOSINOPHILS PERCENT AUTO 2 % (0-6); Hematocrit 24.5 % (33.0-51.0); IMMATURE GRAN ABSOLUTE AUTO 0.05 K/mm3 (0.00-0.10); IMMATURE GRAN PERCENT AUTO 1 % (0-1); LYMPHOCYTES ABSOLUTE AUTO 1.09 K/mm3 (0.84-5.20); LYMPHOCYTES PERCENT AUTO 12 % (21-46); MONOCYTES ABSOLUTE AUTO 0.36 K/mm3 (0.16-1.47); MONOCYTES PERCENT AUTO 4 % (4-13); Mean Corpuscular HGB 30.4 pg (26.0-34.0); Mean Corpuscular HGB Conc 32.7 g/dL (31.5-36.5); Mean Corpuscular Volume 93 fL (80-100); Mean Platelet Volume 11.1 fL (9.1-12.4); NEUTROPHILS ABSOLUTE AUTO 7.73 K/mm3 (1.96-9.15); NEUTROPHILS PERCENT AUTO 82 % (41-73); Platelet Count 341 K/mm3 (150-400); RDW Coefficient Variation 14.5 % (11.7-14.2); RDW Standard Deviation 49.1 fL (35.1-46.3); Red Blood Cell Count 2.63 M/mm3 (3.80-5.20)
[2023-04-02 04:13] LABS: Albumin, Blood 1.4 g/dL (3.4-5.0); Anion Gap 3 mmol/L (6-16); Blood Urea Nitrogen 35 mg/dL (8-24); Bun/Creatinine Ratio 61.6 (12.0-20.0); CO2, Blood 33 mmol/L (21-32); Calcium, Blood 8.2 mg/dL (8.5-10.1); Chloride, Blood 105 mmol/L (98-108); Creatinine, Blood 0.57 mg/dL (0.40-1.00); Glomerular Filtration Rate 98 (60-); Glucose, Blood 204 mg/dL (70-99); Magnesium, Blood 2.5 mg/dL (1.6-2.4); Phosphorus, Blood 3.2 mg/dL (2.5-4.9); Potassium, Blood 4.1 mmol/L (3.5-5.5); Sodium, Blood 141 mmol/L (136-145)
--- NOTE | 2023-04-02 05:22 | NUR ---
END OF SHIFT SUMMARY PT INTUBATED AND OFF OF SEDATION. FOLLOWS SOME COMMANDS SUCH SQUEEZING LEFT HAND WHEN TOLD. PT HAS JERKING MOTIONS SIMILAR TO BEING STARTLED WHEN IN THE MIDDLE OF CARE. OPENS EYES AND TRACKS PERSONS IN ROOM. RANDOMLY MOVES FEET AND ARMS IN BED IF TRYING TO GET COMFORTABLE. GRANDSON AT BEDSIDE. CONTINUES TO BE FEBRILE WITH HIGH TEMP OF 101.2. ACETAMINOPHEN SUCCESSFUL WITH TEMP DROP TO 100.0. TOLERATING TF AT GOAL RATE OF 40 MLS/HR WITH 200 MLS FLUSH Q4 HOURS. MINIMAL SECRETIONS WITH SUCTION AND MOUTH CARE. TEMP ZALDIVAR OUTPUT OF 450 MLS THIS SHIFT WITH DARK/BERE URINE PRESENT. WILL CONTINUE TO MONITOR PT UNTIL REPORT GIVEN TO AM RN.
--- NOTE | 2023-04-02 10:33 | NUR ---
ASSUMPTION OF CARE REPORT RECEIVED FROM ELSA RN. PT RESTING IN BED. PT RESPONSIVE TO VERBAL STIMULI, FOLLOWS SOME COMMANDS. HR PACED WITH A RATE IN THE 80'S, MAP > 65. INTUBATED BUT NOT SEDATED, VENTILATOR SETTINGS AC/VC 18/400/5/30% OXYGEN SATURATION >95%. TUBE FEEDS INFUSING AT 40MLS/HR. POWERGLIDE TO ANDREW, TEMP ZALDIVAR IN PLACE DRAINING TO GRAVITY. GRANDSON AT THE BEDSIDE.
--- NOTE | 2023-04-02 17:45 | NUR ---
SHIFT SUMMARY PT RESTING IN BED, INTUBATED BUT NOT SEDATED. HR 70-80'S PACED, MAP > 65. PT OPENS EYES TO VERBAL STIMULI, ABLE TO FOLLOW SOME COMMANDS SUCH WIGGLING HER TOES. PT HAD SBT LASTING A FEW HOURS, VENTILATOR SETTINGS NOW AC/VC 18/400/5/30%, OXYGEN SATURATION > 95%. OG TUBE IN PLACE, TF INFUSING AT 40MLS/HR. POWERGLIDE TO ANDREW, ZALDIVAR PATENT DRAINING TO GRAVITY. PT HAD TMAX OF 101.3, MEDICATED WITH TYLENOL PER EMAR. PT GRANDSON AT THE BEDSIDE.
--- NOTE | 2023-04-02 19:22 | NUR ---
ASSUMED CARE OF PATIENT AT 1900. REPORT RECEIVED FROM GIULIA DOWNS AND SARAH RN. VSS AND NO ACUTE NEEDS IDENTIFIED AT THIS TIME. SEE SHIFT ASSESS FOR FULL ASSESSMENT DETAILS.
[2023-04-03] VITALS (18 sets, daily range): BP systolic 155–204; BP diastolic 74–119
[2023-04-03 03:26] LABS: BASOPHILS ABSOLUTE AUTO 0.02 K/mm3 (0.00-0.23); BASOPHILS PERCENT AUTO 0 % (0-2); EOSINOPHILS ABSOLUTE AUTO 0.19 K/mm3 (0.00-0.68); EOSINOPHILS PERCENT AUTO 2 % (0-6); Hematocrit 24.8 % (33.0-51.0); IMMATURE GRAN ABSOLUTE AUTO 0.06 K/mm3 (0.00-0.10); IMMATURE GRAN PERCENT AUTO 1 % (0-1); LYMPHOCYTES ABSOLUTE AUTO 1.12 K/mm3 (0.84-5.20); LYMPHOCYTES PERCENT AUTO 12 % (21-46); MONOCYTES ABSOLUTE AUTO 0.36 K/mm3 (0.16-1.47); MONOCYTES PERCENT AUTO 4 % (4-13); Mean Corpuscular HGB 30.1 pg (26.0-34.0); Mean Corpuscular HGB Conc 32.3 g/dL (31.5-36.5); Mean Corpuscular Volume 93 fL (80-100); Mean Platelet Volume 10.9 fL (9.1-12.4); NEUTROPHILS PERCENT AUTO 82 % (41-73); Platelet Count 346 K/mm3 (150-400); RDW Coefficient Variation 14.5 % (11.7-14.2); RDW Standard Deviation 48.9 fL (35.1-46.3); Red Blood Cell Count 2.66 M/mm3 (3.80-5.20); White Blood Cell Count 9.75 K/mm3 (4.00-11.30)
[2023-04-03 03:43] LABS: Albumin, Blood 1.6 g/dL (3.4-5.0); Anion Gap 4 mmol/L (6-16); Blood Urea Nitrogen 35 mg/dL (8-24); Bun/Creatinine Ratio 66.5 (12.0-20.0); CO2, Blood 33 mmol/L (21-32); Calcium, Blood 8.2 mg/dL (8.5-10.1); Chloride, Blood 102 mmol/L (98-108); Creatinine, Blood 0.53 mg/dL (0.40-1.00); Glomerular Filtration Rate 99 (60-); Glucose, Blood 222 mg/dL (70-99); Phosphorus, Blood 3.6 mg/dL (2.5-4.9); Potassium, Blood 4.1 mmol/L (3.5-5.5); Sodium, Blood 139 mmol/L (136-145)
--- NOTE | 2023-04-03 05:15 | NUR ---
SHIFT SUMMARY PATIENT REMAINED INTUBATED AND OFF SEDATION THROUGHOUT ENTIRETY OF SHIFT. SHE IS ONLY ORIENTED TO SELF AND WITHDRAWS FROM NOXIOUS STIMULI BUT DOES NOT FOLLOW VERBAL COMMANDS OR MAKE PURPOSEFUL MOVEMENTS. TMAX OF 101.9 - GIVEN TYLENOL, AXILLARY ICE PACKS, AND FAN IN PLACE. MONITOR SHOWED PACED RHYTHM WITH HR IN 80'S-90'S. BP STABLE. VENT IS A/C VC+ WITH SETTINGS AT 18/400/5/30. O2 SATURATIONS REMAINED IN HIGH 90'S. OG TUBE INFUSING PIVOT FORMULA AT GOAL RATE WITH 200mL FLUSH Q4H. NO BM THIS SHIFT. TEMP ZALDIVAR DRAINING DARK YELLOW URINE TO GRAVITY. PG TO ANDREW INFUSING TKO - DRAWS AND FLUSHES WELL. WILL CONTINUE TO MONITOR UNTIL REPORT IS GIVEN TO ONCOMING NURSE.
--- NOTE | 2023-04-03 09:57 | NUR ---
ASSUMPTION OF CARE REPORT RECEIVED FROM ELSA RN. PT RESTING IN BED. INTUBATED BUT NOT SEDATED. PT OPENS EYES SPONTANEOUSLY AND TO VERBAL STIMULI, FOLLOWS COMMANDS. HR PACED RATE 80-90'S, MAP > 65. OG TUBE IN PLACE TUBE FEEDS INFUSING AT 40MLS. POWERGLIDE IN PLACE TO ANDREW INFUSING NS TKO. ZALDIVAR PATENT DRAINING DARK YELLOW URINE TO GRAVITY. GRANDSON AT THE BEDSIDE.
--- NOTE | 2023-04-03 17:46 | NUR ---
SHIFT SUMMARY PT RESTING IN BED. UP TO BEDSIDE RECLINER FOR THE AFTERNOON. PT OPENS EYES SPONTANEOUSLY AND TO VERBAL STIMULI, FOLLOWS COMMANDS. HR PACED 80-100'S, MAP > 65. INTUBATED BUT NOT SEDATED, PT ON SBT FOR MAJORITY OF SHIFT, SETTINGS 12/5 30%, TOLERATING WELL, OXYGEN SATURATION > 95%. OG TUBE IN PLACE, TUBE FEEDS INFUSING AT 40MLS WITH FLUSH OF 200MLS Q4H, PT TOLERATING WELL. POWERGLIDE TO ANDREW INFUSING NS TKO. TEMP ZALDIVAR IN PLACE PATENT DRAINING YELLOW URINE. COBRA TRANSFER TO [facility] VIA [facility]ACH. FAMILY UPDATED AND INFORMED OF PLAN OF CARE.
--- NOTE | 2023-04-03 18:52 | NUR ---
PT TRANSFER.... PT WAS TAKEN BY REACH TO [facility] AT 1850. ALL OF THE PT'S BELONGINGS WERE PACKED AND SENT WITH THE PT'S GRANDSON. PT'S VS STABLE AT THE TIME OF TRANSFER.
--- NOTE | 2023-04-03 19:09 | NUR ---
PATIENT UPDATE REPORT CALLED TO NANETTE DOWNS AT [facility] AT [id number].
== END 2023-04-03 18:49 | disposition short-term general hospital (02) | DRG 870 ==
LOC: PCU 15:59 → ICUE 17:42
PROVIDERS: Family Medicine; Hospitalist; Internal Medicine; Internal Medicine Critical Care Medicine; Nurse Practitioner Acute Care; ADMIT Hospitalist
PROC: 5A09457 Assistance with Respiratory Ventilation, 24-96 Consecutive Hours, Continuous Positive Airway Pressure (ICD-10-PCS; 2023-03-21)
PROC: 4A133R1 Monitoring of Arterial Saturation, Peripheral, Percutaneous Approach (ICD-10-PCS; 2023-03-21)
PROC: 5A1955Z Respiratory Ventilation, Greater than 96 Consecutive Hours (ICD-10-PCS; principal; 2023-03-24)
PROC: 0BH17EZ Insertion of Endotracheal Airway into Trachea, Via Natural or Artificial Opening (ICD-10-PCS; 2023-03-24)
PROC: 0D9670Z Drainage of Stomach with Drainage Device, Via Natural or Artificial Opening (ICD-10-PCS; 2023-03-24)
PROC: 0T9B70Z Drainage of Bladder with Drainage Device, Via Natural or Artificial Opening (ICD-10-PCS; 2023-03-24)
PROC: B245ZZ4 Ultrasonography of Left Heart, Transesophageal (ICD-10-PCS; 2023-03-24)
DX: A41.01 Sepsis due to Methicillin susceptible Staphylococcus aureus (principal); J96.01 Acute respiratory failure with hypoxia; G92.8 Other toxic encephalopathy; J15.212 Pneumonia due to Methicillin resistant Staphylococcus aureus; I21.A1 Myocardial infarction type 2; J15.6 Pneumonia due to other Gram-negative bacteria; E87.20 Acidosis, unspecified; R65.20 Severe sepsis without septic shock; I82.A22 Chronic embolism and thrombosis of left axillary vein; Z68.43 Body mass index [BMI] 50.0-59.9, adult; Z20.822 Contact with and (suspected) exposure to COVID-19; M89.8X8 Other specified disorders of bone, other site; E11.65 Type 2 diabetes mellitus with hyperglycemia; I10 Essential (primary) hypertension; E66.9 Obesity, unspecified; E87.6 Hypokalemia; Z95.0 Presence of cardiac pacemaker; B36.9 Superficial mycosis, unspecified; M54.9 Dorsalgia, unspecified; Z79.899 Other long term (current) drug therapy; Z79.82 Long term (current) use of aspirin; Z79.4 Long term (current) use of insulin; Z79.2 Long term (current) use of antibiotics
CPT/HCPCS: 0202U; 31500; 31720; 36415; 36600; 70450; 71045; 71275; 72129; 72132; 80048; 80053; 80061; 80069; 80202; 81001; 82010; 82248; 82330; 82550; 82803; 82947; 83036; 83605; 83735; 83880; 84100; 84132; 84484; 84550; 85025; 85027; 85060; 87040; 87070; 87075; 87077; 87086; 87103; 87147; 87186; 87205; 93005; 93010; 93312; 93325; 93971; 94002; 94003; 94640; 94660; 94664; 94667; 94668; 94762; A9270; C1751; C8929; J0360; J0612; J0696; J0878; J1450; J1644; J1815; J1940; J2060; J2185; J2543; J2704; J3010; J3370; J3480; J7042; J7050; J7060; J7070; J7120; Q9957; Q9967